=== PATIENT | female | born 1985 | race Hispanic/Latino ===

== ENCOUNTER 2019-10-28 20:52 | Emergency (ER) | payer OTHER ==
--- OUTSIDE RECORDS SUMMARY | 2019-10-28 20:54 | XMS REPORT | Clinical Summary ---
:1985 Author Organization [facility] Address [address] [place] [address] Care Team Providers Name Role Phone Pcp Primary Care Provider Unavailable Allergies No Known Allergies Medications Medication Sig Dispensed Refills Start Date End Date Status metFORMIN Take 500 mg by mouth 0 Active (GLUCOPHAGE) 500 MG daily. tablet dulaglutide Inject 1.5 mg 0 Acti ve (TRULICITY) 1.5 subcutaneously every mg/0.5 mL PnIj 7 days. empagliflozin Take 25 mg by mouth 0 Active (JARDIANCE) 25 mg daily. tablet traMADoL (ULTRAM) Take 1 tablet (50 mg 30 tablet 0 09/07/2019 50 mg tablet total) by mouth 0 every 6 (six) hours as needed for Pain for up to 10 days. Max Daily Amount: 200 mg methocarbamoL Take 1 tablet (750 40 tablet 0 09/07/2019 (ROBAXIN) 750 MG mg total) by mouth 4 0 tablet (four) times daily for 10 days. Active Problems Problem Noted Date Lumbar radiculopathy 09/07/2019 Encounters Date Type Specialty Care Team Description 09/07/2019 Surgery Devyn Melendez, LAMINECTOMY, LUMBAR W/DISCECTOMY 09/07/2019 Anesthesia Event Juana Garayluz 09/07/2019 - Hospital Encounter General Internal Devyn Melendez, 09/08/2019 Medicine MD 09/07/2019 Travel 09/06/2019 Hospital Encounter Pre-Admission Testing 09/06/2019 Orders Only Devyn Melendez MD 08/20/2019 Hospital Encounter Cardiology Devyn Melendez MD 08/20/2019 Hospital Encounter Devyn Melendez MD 08/20/2019 Hospital Encounter Pre-Admission Devyn Melendez Testing 08/19/2019 Orders Only Devyn Melendez MD after 10/27/2018 Social History Tobacco Use Types Packs/Day Years Used Date Never Smoker Smokeless Tobacco: Never Used Alcohol Use Drinks/Week oz/Week Comments No Alcohol Habits Answer Date Recorded How often do you have a drink containing alcohol? Never 09/06/2019 How many drinks containing alcohol do you have on a typical Not asked day when you are drinking? How often do you have six or more drinks on one occasion? No t asked Sex Assigned at Date Recorded Not on file Job Start Date Occupation Industry Not on file Not on file Not on file Travel History Travel Start Travel End No recent travel history available. Last Filed Vital Signs Vital Sign Reading Time Taken Blood Pressure 127/76 09/08/2019 8:00 AM CDT Pulse 78 09/08/2019 8:00 AM CDT Temperature 37 C (98.6 F) 09/08/2019 8:00 AM CDT Respiratory Rate 18 09/08/2019 8:00 AM CDT Oxygen Saturation 100% 09/08/2019 8:00 AM CDT Inhaled Oxygen Concentration - - Weight 77.1 kg (169 lb 15.6 oz) 09/07/2019 6:1 8 AM CDT Height 157.5 cm (5' 2") 09/07/2019 6:18 AM CDT Body Mass Index 31.09 09/07/2019 6:18 AM CDT Plan of Treatment Not on file Procedures Procedure Name Priority Date/Time Associated Diagnosis Comme nts RHYTHM STRIP - SCAN 09/09/2019 2:30 PM CDT TRANSFUSION SERVICE 09/08/2019 6:25 REPORT - SCAN PM CDT POCT-GLUCOSE METER Routine 09/07/2019 5:55 Resul ts for this PM CDT procedure are i n the results section. POCT-GLUCOSE METER Routine 09/07/2019 11:59 Resul ts for this AM CDT procedure are i n the results section. NEEDLE EMG, 2 Routine 09/07/2019 9:37 Results fo r this EXTREMITY AM CDT procedure are i n the results section. TISSUE EXAM AP Routine 09/07/2019 9:31 Results for this AM CDT procedure are i n the results section. FL FLUORO Routine 09/07/2019 8:39 Results for this NON-SPECIFIC UP TO AM CDT procedure are in 1 HOUR the results section. LAMINECTOMY,LUMBAR 09/07/2019 7:30 Lumbar radiculopat hy MIS AM CDT Case Notes PER May NEED TO PUT CASE O N WAITING LIST Special Needs (C-ARM, MICROSCOPE WITH MOUT H PIECE,RODRIGO TABLE AND,MUSA FRAME) PROCEDURE W/ C-ARM 09/07/2019 7:30 AM CDT Lumbar radi culopathy Case Notes PER May NEED TO PUT CASE O N WAITING LIST Special Needs (C-ARM, MICROSCOPE WITH MOUT H PIECE,RODRIGO TABLE AND,MUSA FRAME) LAMINECTOMY,LUMBAR W/DISCECTOMY 09/07/2019 7:30 AM CD T Lumbar radiculopathy Case Notes PER May NEED TO PUT CASE O N WAITING LIST Special Needs (C-ARM, MICROSCOPE WITH MOUT H PIECE,RODRIGO TABLE AND,MUSA FRAME) ABORH, MANUAL STAT 09/07/2019 6:23 AM CDT Res ults for this procedure are i n the results section . POCT-GLUCOSE METER Routine 09/07/2019 6:07 AM CDT Results for this procedure are i n the results section . POCT , URINE Routine 09/07/2019 6:07 AM CDT Results for this procedure are i n the results section . TRANSFUSION SERVICE REPORT 08/21/2019 6:04 PM CDT - SCAN XR CHEST 2 VIEWS Routine 08/20/2019 2:41 PM CDT Results for this procedure are i n the results section . ECG 12-LEAD Routine 08/20/2019 2:11 PM CDT Procedure Note - Interface, External Ris In - 08/20/2019 4:22 PM CDT Ventricular Rate 98 BPM Atrial Rate 98 BPM P-R Interval 126 ms QRS Duration 70 ms Q-T Interval 354 ms QTC Calculation(Bazett) 451 ms P [place] 61 degrees R [place] 43 degrees T [place] 56 degrees Normal sinus rhythm Normal ECG No previous ECGs available ECG 12-LEAD Routine 08/20/2019 2:11 PM CDT Resu lts for this procedure are i n the results section . CBC W/PLT COUNT & AUTO Routine 08/20/2019 2:07 PM CDT Results for this DIFFERENTIAL procedure are i n the results section . TYPE AND SCREEN, AUTOMATED Routine 08/20/2019 2:07 PM CDT Results for this procedure are i n the results section . CBC W/PLT COUNT & AUTO Routine 08/20/2019 2:07 PM CDT Results for this DIFFERENTIAL procedure are i n the results section . BASIC METABOLIC PANEL (7) Routine 08/20/2019 2:07 PM CDT Results for this procedure are i n the results section . PT/APTT Routine 08/20/2019 2:07 PM CDT Resu lts for this procedure are i n the results section . URINALYSIS W/ REFLEX URINE Routine 08/20/2019 2:07 PM CDT Results for this CULTURE procedure are i n the results section . after 10/27/2018 Results RHYTHM STRIP - SCAN (09/09/2019 2:30 PM CDT) Narrative Performed At This result has an attachment that is no t available. TRANSFUSION SERVICE REPORT - SCAN (09/08/2019 6:25 PM CDT)Only the most recent of2 resultswithin the time period is included. Narrative Performed At This result has an attachment that is no t available. POC-Glucose meter (09/07/2019 5:55 PM CDT)Only the most recent of3 results within the time period is included. POC-Glucose Meter 193 (H)Comment: : TESTED 70 - 110 mg/dL [facility] AT [address], [facility]: Globe Tester/Clinical Program Manager ID = [id number] for RENÉ SHEA Specimen Blood Performing Organization Address City/State/Zipcode Phone Number [facility] [address] [place] [address] CENTER NEEDLE EMG, 2 EXTREMITY (09/07/2019 9:37 AM CDT) Specimen Narrative Performed At INTRAOPERATIVE MONITORING REPORT GE RIS Patient Name:Rekha Irvin [facility] Surgery Date:09/07/2019 Carrier Pro: [id number] Monitoring began at 755 and ended at 937 Surgeon: Devyn Melendez MD Examining Neurologist: Lydia Bustamante MD Monitoring Technologist: Toña Forbes Procedure:Microdisectomy L5- S1 Stimulation Parameters: Posterior Tibial nerves individually sti mulated at the ankle Rate 2.9 2Hz, Intensity 60 mA, Duration 0.3ms Filters 30-500Hz, Notch Off Recording Parameters:NONE Free-running EMG of left and right Vastu s Lateralis/Vastus Medialis (L2-4), Tibialis Anterior (L4-5)- Perone us Longus (L5-S1) and Lateral Gastrocnemius (L5-S2) Abductor Hallicus ( S1-S2) Description:Intraoperative neurophys iological monitoring was performed using free-running EEGs and fr ee-running L2-S2 innervated muscle groups.A real-time connection with the examining neurologist was established and maintained throughou t the operative procedure by the monitoring technologist. Free-runnin g EMG of L2-S2 innervated muscle groups was quiet at baseline and monitored continuously throughout the operative procedure with no sustained neurotonic discharges seen. All EMGs were quiet at closing.Surgeon aware of all responses throughout the case and at closing. Conclusion: The absence of sustained neurotonic discharges on free-running EMG suggests that the nerve roots monitored remained undisturbed. Lydia Bustamante MD Procedure Note Interface, External Ris In - 09/09/2019 5:40 PM CDT INTRAOPERATIVE MONITORING REPORT Patient Name: Rekha Irvin [facility] Surgery Date: 09/07/2019 Carrier Pro: [id number] Monitoring began at 755 and ended at 937 Surgeon: Devyn Melendez MD Examining Neurologist: Lydia Bustamante MD Monitoring Technologist: Toña Forbes Procedure: Microdisectomy L5- S1 Stimulation Parameters: Posterior Tibial nerves individually sti mulated at the ankle Rate 2.92Hz, Intensity 60 mA, Duration 0.3ms Filters 30-500Hz, Notch Off Recording Parameters: NONE Free-running EMG of left and right Vastu s Lateralis/Vastus Medialis (L2-4), Tibialis Anterior (L4-5)- Perone us Longus (L5-S1) and Lateral Gastrocnemius (L5-S2) Abductor Hallicus ( S1-S2) Description: Intraoperative neurophysio logical monitoring was performed using free-running EEGs and fr ee-running L2-S2 innervated muscle groups. A real-time connection w ith the examining neurologist was established and maintained throughou t the operative procedure by the monitoring technologist. Free-runnin g EMG of L2-S2 innervated muscle groups was quiet at baseline and monitored continuously throughout the operative procedure with no sustained neurotonic discharges seen. All EMGs were quiet at closing. Surgeon aware of all responses throughout the case and at closing. Conclusion: The absence of sustained n eurotonic discharges on free-running EMG suggests that the nerve roots monitored remained undisturbed. Lydia Bustamante MD Performing Organization Address City/[facility]/Zipcode Phone Number GE RIS Tissue Exam (09/07/2019 9:31 AM CDT) Case Report Surgical Pathology Report Case: [id number] [facility] Authorizing Provider:Devyn Melendez MD Collected: 09/07/2019 09:31 AM [facility] Ordering Location: [facility] PERIOPERATIVE Received:09/07/2019 10:05 AM SERVICES Pathologist: Moises Dukes MD Specimen:Disc L5-S1 DIAGNOSIS VERTEBRAL COLUMN, INTERVERTEBRAL DISC, L5-S1, DI SCECTOMY: [facility] FRAGMENTS OF FIBROCARTILAGE WITH MILD DEGENERATI VE CHANGES [facility] Signing Pathologist Direct Phone Line: CPT Code(s) 165[address] [facility]TH [facility] CLINICAL HISTORY Preop diagnosis: Lumbar [facility] radiculopathy. [facility] SPECIMEN SOURCE Disc L5-S1 [facility] ALTH [facility] GROSS DESCRIPTION Received in formalin labeled C [facility] with the patient's name, [facility] accession number and "disc L5-S1" is a 1.5 x 1.4 x 0.3 cm aggregate of zhong-white fibrous tissue which is entirely submitted in A1. PA/pl MICROSCOPIC DESCRIPTION Performed [facility] Specimen Tissue Performing Organization Address City/[facility]/Zipcode Phone Number [address] [address] CENTER FL fluoro non-specific up to 1 hour (09/07/2019 8:39 AM CDT) Specimen Narrative Performed At FINAL REPORT RIS TECHNIQUE: 1 lateral fluoroscopic image of the lumbar spine for localization. Fluoroscopic time: 31 seconds. FINDINGS: The surgical pointer is at L5-S1. The findings were discussed with Dr. ANNI MELENDEZ MD in the OR who concurred with the findings. IMPRESSION: Intraoperative localization plain film a s described above. Signed: Kori Rondon MD Report Verified Date/Time:09/07/2019 08:39:50 Reading Location: [facility] Reading Room Procedure Note Interface, External Ris In - 09/07/2019 8:41 AM CDT FINAL REPORT TECHNIQUE: 1 lateral fluoroscopic image of the lumbar spine for localization. Fluoroscopic time: 31 seconds. FINDINGS: The surgical pointer is at L5-S1. The findings were discussed with Dr. ANNI MELENDEZ MD in the OR who concurred with the findings. IMPRESSION: Intraoperative localization plain film a s described above. Signed: Kori Rondon MD Report Verified Date/Time: 09/07/2019 0 8:39:50 Reading Location: [facility] Reading Room Performing Organization Address City/State/Zipcode Phone Number RIS ABORH, manual (09/07/2019 6:23 AM CDT) ABO Grouping O [facility] Rh Factor NEG [facility] Specimen Blood Performing Organization Address City/[facility]/Zipcode Phone Number [facility] [address] [place] [address] POCT , urine (09/07/2019 6:07 AM CDT) Test Urine, POC Negative Control line present?, POC Yes Background clear?, POC Yes UPT Cassette Lot #, POC [id number] UPT Cassette Expiration Date, POC Specimen XR chest 2 views (08/20/2019 2:41 PM CDT) Specimen Narrative Performed At FINAL REPORT GE RIS TECHNIQUE: Frontal and lateral views of the chest. INDICATION: 34-year-old woman with radic ulopathy. COMPARISON: None. FINDINGS: LINES/TUBES: None. LUNGS: Lungs are well inflated and clear . PLEURA: No pleural effusion or pneumotho rax. HEART AND MEDIASTINUM: Cardiomediastinal silhouette is within normal limits. BONES AND SOFT TISSUES: Bones are unrema rkable. Clips in the right upper quadrant. IMPRESSION: No acute cardiopulmonary abnormalities. Signed: Nettie Lomas MD Report Verified Date/Time:08/20/2019 14:53:50 Reading Location: [address] Radiolog y Reading Room Procedure Note Interface, External Ris In - 08/20/2019 2:55 PM CDT FINAL REPORT TECHNIQUE: Frontal and lateral views of the chest. INDICATION: 34-year-old woman with radic ulopathy. COMPARISON: None. FINDINGS: LINES/TUBES: None. LUNGS: Lungs are well inflated and clear . PLEURA: No pleural effusion or pneumotho rax. HEART AND MEDIASTINUM: Cardiomediastinal silhouette is within normal limits. BONES AND SOFT TISSUES: Bones are unrema rkable. Clips in the right upper quadrant. IMPRESSION: No acute cardiopulmonary abnormalities. Signed: Nettie Lomas MD Report Verified Date/Time: 08/20/2019 1 4:53:50 Reading Location: [address] Radiolog y Reading Room Performing Organization Address City/State/Zipcode Phone Number GE RIS ECG 12 lead (08/20/2019 2:11 PM CDT) Specimen Narrative Performed At Ventricular Rate 98 BPM GE MUSE Atrial Rate 98 BPM P-R Interval 126 ms QRS Duration 70 ms Q-T Interval 354 ms QTC Calculation(Bazett) 451 ms P [place] 61 degrees R [place] 43 degrees T [place] 56 degrees Normal sinus rhythm Normal ECG No previous ECGs available Confirmed by Casper Gtz ([id number]) on 08/21/2019 11:30 :22 AM Procedure Note Interface, External Ris In - 08/21/2019 11:30 AM CDT Ventricular Rate 98 BPM Atrial Rate 98 BPM P-R Interval 126 ms QRS Duration 70 ms Q-T Interval 354 ms QTC Calculation(Bazett) 451 ms P [place] 61 degrees R [place] 43 degrees T [place] 56 degrees Normal sinus rhythm Normal ECG No previous ECGs available Confirmed by Casper Gtz ([id number]) on 11:30:22 AM Performing Organization Address City/State/Zipcode Phone Number GE MUSE Urinalysis w/Microscopic + Reflex to Culture (08/20/2019 2:07 PM CDT) Color, UA Light Yellow [facility] Clarity, UA Clear [facility] Specific Pitman, UA 1.043 (H) 1.001 - 1.[address] [facility] pH, UA 5.5 5.0 - 8.[address] [facility] Protein, UA Negative Negative [facility] Glucose, UA >1000 mg/dL (A) Negative [facility] Ketones, UA Negative Negative [facility] Bilirubin, UA Negative Negative [facility] Blood, UA Negative Negative [facility] Nitrite, UA Positive (A) Negative [facility] Leukocytes, UA Negative Negative [facility] Urobilinogen, UA 0.2 0.2 - 1.0 mg/dL [facility] RBC, UA <1 /HPF [facility] WBC, UA 3 /HPF [facility] Bacteria, UA Rare [facility] Mucus Rare [facility] Squam Epithel, UA <1 /HPF [facility] Specimen Source [facility] Specimen Urine Narrative Performed At Globe Tester ID - [auto] [facility] Globe Tester ID - tech Performing Organization Address [facility] Phone Number [address] [address] CENTER Type and screen, automated (08/20/2019 2:07 PM CDT) ABO/RH AUTOMATED (BEAKER) O NEGATIVE [facility] Ab Scrn NEGATIVE [facility] Specimen Blood Performing Organization Address [facility] Phone Number [facility] [address] [place] [address] PT/aPTT (08/20/2019 2:07 PM CDT) Protime 12.5 11.9 - 14.2 seconds [facility] INR 1.0 <=5.9 [facility] PTT 27.9 22.5 - 36.0 seconds [facility] Specimen Blood Narrative Performed At Effective 07/08/2018: PT Reference Range [facility] Change New: 11.9-14.2Previous: 11.7-14.7 RECOMMENDED COUMADIN/WARFARIN INR THERAPY RANGES STANDARD DOSE: 2.0-3.0Includes: PROPHYLAXIS for venous thrombosis, systemic embolization; TREATMENT for venous thrombosis and/or pulmonary embolus. HIGH RISK: Target INR is 2.5-3.5 for patients wiht mechanical heart valves. Performing Organization Address [facility] Phone Number [facility] [address] [place] [address] CENTER CBC with platelet count + automated diff (08/20/2019 2:07 PM CDT) WBC 10.9 (H) 3.5 - 10.5 K/L [facility] RBC 4.27 3.93 - 5.22 M/L [facility] Hemoglobin 10.9 (L) 11.2 - 15.7 GM/DL [facility] Hematocrit 36.2 34.1 - 44.9 % [facility] CENTER MCV 84.8 79.4 - 94.[address] [facility] MCH 25.5 (L) 25.6 - 32.[address] [facility] MCHC 30.1 (L) 32.2 - 35.5 GM/DL [facility] RDW 14.3 11.7 - 14.4 % [facility] Platelets 376 150 - 450 K/CU MM [facility] MPV 9.9 9.4 - 12.[address] [facility] nRBC 0 0 - 0 /100 WBC [facility] % Neutros 70 % [facility] CENTER % Lymphs 22 % [facility] % Monos 7 % [facility] % Eos 0 % [facility] % Baso 1 % [facility] # Neutros 7.65 (H) 1.56 - 6.13 K/L [facility] # Lymphs 2.43 1.18 - 3.74 K/L [facility] # Monos 0.71 (H) 0.24 - 0.36 K/L [facility] # Eos 0.02 (L) 0.04 - 0.36 K/L [facility] # Baso 0.05 0.01 - 0.08 K/L [facility] Immature Granulocytes-Relative 0 0 - 1 % C HI [facility] Specimen Blood Performing Organization Address City/State/Zipcode Phone Number [facility] [address] [place] [address] CENTER Basic Metabolic Panel (08/20/2019 2:07 PM CDT) Sodium 135 (L) 136 - 145 meq/L [facility] Potassium 3.8 3.5 - 5.1 meq/L [facility] Chloride 105 98 - 107 meq/L [facility] CO2 22 22 - 29 meq/L [facility] BUN 21 7 - 21 mg/dL [facility] Creatinine 0.77 0.57 - 1.25 mg/dL [facility] Glucose 176 (H) 70 - 105 mg/dL [facility] Calcium 9.0 8.4 - 10.2 mg/dL [facility] EGFR 86Comment: ESTIMATED GFR IS mL/min/1.73 sq m [facility] NOT ACCURATE CREATININE MO DICAL CENTER CLEARANCE IN PREDICTING GLOMERULAR FILTRATION RATE. ESTIMATED GFR IS NOT APPLICABLE FOR DIALYSIS PATIENTS. Specimen Blood Narrative Performed At Globe Tester ID - BS [facility] Performing Organization Address City/State/Zipcode Phone Number [facility] [address] [place] [address] CENTER after 10/27/2018 Insurance Payer Benefit Plan / Group Subscriber ID Type Phone A ddress [employer] [facility] [employer] xxxxxxxxxxxx HMO/POS CARE CHOICE Advance Directives For more information, please contact:[facility] [place] [address] [phone] Code Status Date Activated Date Inactivated Comments Full Code 09/07/2019 5:52 AM 09/08/2019 12:38 PM This code status was determined by: Patient
--- OUTSIDE RECORDS SUMMARY | 2019-10-28 20:54 | XMS REPORT | Continuity of Care Document ---
:1985 Author Organization Down Care Team Providers Name Role Phone Down Unavailable Un available Problems Problem Status Onset Classification Date Comments Sourc e Date Reported Lumbar [facility]20[facility]2019 [facility]disorder) Peripheral nerve Active Problem 06/20/2019 [facility] disease Neuro (disorder) Medications No Data Provided for This Section Allergies, Adverse Reactions, Alerts No Known Medication Allergies Immunizations No Data Provided for This Section Results No Data Provided for This Section Pathology Reports No Data Provided for This Section Diagnostic Reports No Data Provided for This Section Consultation Notes No Data Provided for This Section Discharge Summaries No Data Provided for This Section History and Physicals No Data Provided for This Section Vital Signs No Data Provided for This Section Encounters Location Location Encounter Encounter Reason Attending ADM IA Stat Source Details Type Number For Provider Date Date Visit Outpatient [id number] Tim 05/13 Active [facility] /2019 [facility] Out[facility] [id number] [facility] 05/13 05/14 [facility] [place] /2019 Neuro [facility] Outside [id number] 06/16 06/18 [facility] /2019 Neuro [facility] Records Procedures No Data Provided for This Section Assessment and Plan No Data Provided for This Section Plan of Care No Data Provided for This Section Social History Social History Date Source No data available for this 06/19/2019 [facility] Neuro section Family History No Data Provided for This Section Advance Directives No Data Provided for This Section Functional Status No Data Provided for This Section
--- OUTSIDE RECORDS SUMMARY | 2019-10-28 20:55 | XMS REPORT | Continuity of Care Document ---
:1985 Author Organization [facility] t Address [address] [place] [address] [address]. [address] [place] [address] Care Team Providers Name Role Phone Pcp Primary Care Physician Unavailable Shakeel CANTU R Attending Clinician LATRICIA IVEY Attending Clinician Unavailable Latricia Ivey MD Attending Clinician Gatito Garay Attending Clinician Unavailable Latricia Ivey MD Attending Clinician Thomas Traore Attending Clinician LATRICIA IVEY Admitting Clinician Unavailable Payers Payer Name Policy Type Policy Number Effective Date Expiration Date S [facility] xxxxxxxxxxxx [facility] POS SELECT CHOICExxxxxxxxxx xxHMO/POS Problems Condition Condition Condition Status Onset Resolution Last Treating Co mments Source Name Details Category Date Date Treatment Clinician Date Lumbar Lumbar Disease Active [facility] radiculopa radiculopa 09-06 [facility] k[facility] - thy thy 00:00: Medical 00 Center Type 2 Type [address] [facility] diabetes diabetes [facility] - mellitus mellitus Memori a with other with other l diabetic diabetic Outpat i kidney kidney ent complicati complicati Cl inics on on Type 2 Type [address] [facility] diabetes diabetes [facility] - mellitus mellitus Memori a without without l complicati complicati Ou tpati on, on, ent without without Clinics long-term long-term current current use of use of insulin insulin Mixed Mixed Problem Active [facility] hyperlipid hyperlipid [facility] kes - emia emia Memoria l Outpati ent Clinics Well woman Well woman Problem Active C [facility] exam with exam with Luke s - routine routine Memoria gynecologi gynecologi l carolina exam carolina exam Outpat i ent Clinics Acute low Acute low Problem Active [facility] back pain back pain Luke s - without without Memoria sciatica, sciatica, l unspecifie unspecifie Ou tpati d back d back ent pain pain Clinics laterality laterality Adult BMI Adult BMI Problem Active [facility] 34.0-34.9 34.0-34.9 Luke s - kg/sq m kg/sq m Memoria l [facility] ent Clinics Tubal Tubal Problem Active [facility] ligation ligation [facility] - status status Memoria l [facility] ent Clinics Abnormal Abnormal Problem Active [facility] urine urine [facility] - Memoria l [facility] ent Clinics Right leg Right leg Problem Active [facility] paresthesi paresthesi [facility] kes - as as Memoria l [facility] ent Clinics Noncomplia Noncomplia Problem Active [facility] nce with nce with [facility] - dietary dietary Memoria restrictio restrictio l n n [facility]ics Constipati Constipati Problem Active [facility] on, on, [facility]ukes - unspecifie unspecifie Me moria d d l constipati constipati Ou tpati on type on type ent Clinics Herniated Herniated Problem Active [facility] lumbar lumbar [facility] - interverte interverte Me moria bral disc bral disc l [facility] ent Clinics Peripheral Problem Active 2019-06-20 M emoria nerve 23:16:54 l disease Atkinson (disorder) Peripheral nerve disease (disorder) Active Problem 06/20/2019 [facility] Allergies, Adverse Reactions, Alerts This patient has no known allergies or adverse reactions. Social History Social Habit Start Date Stop Date Quantity Comments Source History SDOH Alcohol [facility] [place] - Std Drinks [facility] Center History SDOH Alcohol [facility] [place] - Binge [facility] Center Sex Assigned At [facility] History SDOH Alcohol 2019-09-06 2019-09-[address] [facility] - Frequency 00:00:00 00:00:00 Medical Center Social History 2019-06-19 2019-06-19 [facility] alpesh 04:59:59 04:59:59 Smoking Status Start Date Stop Date Source Never smoker [facility] [place] - edical Center Medications Ordered Filled Start Stop Current Ordering Indication Dosage Frequency Signature Comments Components Source Medication Medication Date Date Medication? Clinician (SIG) Name Name traMADoL 2019- No 50mg Take [address] [facility] (ULTRAM) 50 09-06- tablet (50 L ukes - mg tablet 00:00: 23:59 mg total) Me dical 00 :00 by mouth Center every 6 (six) hours as needed for Pain for up to 10 days. Max Daily Amount: 200 mg methocarbam 2019- No 750mg Q.25D Take [address] oL 09-06 tablet [facility] - (ROBAXIN) 00:00: 23:59 (750 mg Medi carolina 750 MG 00 :00 total) by Center tablet mouth 4 (four) times daily for 10 days. metFORMIN Yes 500mg QD Take [address] [facility] (GLUCOPHAGE 7-14 mg by [facility] - ) 500 MG 11:39: mouth Medical tablet 20 daily. Center dulaglutide Yes 1.5mg Inject 1.[address] (TRULICITY) 7-14 mg [facility] - 1.5 mg/0.5 11:39: subcutaneo M edical mL PnIj 20 usly every Center 7 days. empaglifloz Yes 25mg QD Take [address] in 7-14 by mouth [facility]ukes - (JARDIANCE) 11:39: daily. Medi carolina 25 mg 20 Center tablet Lyrica Lyrica Yes Oscar [address] 8-21 [facility] - 00:00: Memoria 00 l [facility] Trulicity Trulicity Yes Oscar INJET [facility] [place] 1.5MG [facility] - UNDER THE Memoria SKIN ONCE l A WEEK [facility] Lisinopril Lisinopril Yes Oscar [address] [facility] - [facility] Synjardy XR Synjardy XR Yes Oscar [address] [facility] [place] with [facility] - breakfast [facility]oria l [facility] Lipitor Lipitor Yes Oscar [address] [facility] Phentermine Phentermine 2019- No Oscar [address] [facility] HCl HCl 07-13 [place] [facility] - 00:00 Memoria :00 l [facility] Vital Signs Vital Name Observation Time Observation Value Comments Source Systolic blood 2019-09-08 08:00:00 127 mm[Hg] [facility] Diastolic blood 2019-09-08 08:00:00 76 mm[Hg] [facility] Heart rate 2019-09-08 08:00:00 78 /min [facility] Body temperature 2019-09-08 08:00:00 37 Yohana [facility] Respiratory rate 2019-09-08 08:00:00 18 /min [facility] Oxygen saturation in 2019-09-08 08:00:00 100 /min [facility] Arterial blood by Medical Ce nter Pulse oximetry Body height 2019-09-07 06:18:00 157.5 cm [facility] Body weight Measured 2019-09-07 06:18:00 77.1 kg [facility] BMI 2019-09-07 06:18:00 31.09 kg/m2 [facility] Procedures Procedure Date / Time Performed Performing Clinician [facility]ly [facility] e RHYTHM STRIP - SCAN 2019-09-09 14:30:06 Provider, Default [facility] TRANSFUSION SERVICE 2019-09-08 18:25:10 Provider, Default [facility] REPORT [facility] POCT-GLUCOSE METER 2019-09-07 17:55:00 Mulugeta Ivey [facility] POCT-GLUCOSE METER 2019-09-07 11:59:00 Mulugeta Ivey [facility] NEEDLE EMG, 2 EXTREMITY 2019-09-07 09:37:00 Mulugeta Ivey [facility] TISSUE EXAM 2019-09-07 09:31:00 Mulugeta Ivey [facility] [place] FLUORO NON-SPECIFIC 2019-09-07 08:39:00 Mulugeta Ivey [facility] - UP TO 1 HOUR [facility] LAMINECTOMY,LUMBAR 2019-09-07 07:30:00 Mulugeta Ivey [facility] - W/DISCECTOMY [facility] PROCEDURE W/ C-ARM 2019-09-07 07:30:00 Mulugeta Ivey [facility] LAMINECTOMY,LUMBAR MIS 2019-09-07 07:30:00 Ivey, Mulugeta [facility] ABORH, MANUAL 2019-09-07 06:23:00 Caitlin Aaron [facility] POCT , URINE 2019-09-07 06:07:00 Tim Cardona [facility] POCT-GLUCOSE METER 2019-09-07 06:07:00 Mulugeta Ivey [facility] TRANSFUSION SERVICE 2019-08-21 18:04:20 Provider, Carol [facility] - REPORT - SCAN Scanning [facility] XR CHEST 2 VIEWS 2019-08-20 14:41:00 Mulugeta Ivey [facility] ECG 12-LEAD 2019-08-20 14:11:23 Unknown, Hl7 Doctor [facility] URINALYSIS W/ REFLEX 2019-08-20 14:07:00 Mulugeta Ivey [facility] URINE CULTURE [facility] Center PT/APTT 2019-08-20 14:07:00 [facility] BASIC METABOLIC PANEL 2019-08-20 14:07:00 Mulugeta Ivey [facility] (7) Medical Center TYPE AND SCREEN, 2019-08-20 14:07:00 Mulugeta Ivey [facility] AUTOMATED [facility] CBC W/PLT COUNT & AUTO 2019-08-20 14:07:00 Mulugeta Ivey [facility] DIFFERENTIAL [facility] Encounters Start End Encounter Admission Attending Care Care Encounter Source Date/Time Date/Time Type Type Clinicians Facility Department ID 2019-09-23 2019-09-23 Office NENA Beckford [id number] 12:13:33 12:55:16 Visit Rosalia R AMBULATOR [id number] Y [id number] 2019-08-23 2019-08-23 [facility] [id number] [address] 12:17:00 12:17:[address] [facility] Medicine Outpati ent Clinics 2019-08-23 2019-08-23 [facility] [id number] 11:30:00 11:30:[address] [facility] Medicine Outpati ent Clinics 2019-08-18 2019-08-18 Office Mulugeta Ivey [facility] [id number] 11:06:10 12:02:36 Visit Latricia AMBULATOR [id number] Y [id number] 2019-07-15 2019-07-15 [facility] [id number] 08:10:00 08:10:00 t [place] dVisit [employer]rowd[employer]at s - [employer] [facility] Medicine Outpati ent Clinics 2019-07-02 2019-07-02 [facility] [id number] 14:38:00 14:38:00 t iAmplify s - [employer] [facility] Medicine Outpati ent Clinics 2019-06-28 2019-06-28 [facility] [id number] 19:48:00 19:48:00 t iAmplify s - [employer] [facility] Medicine Outpati ent Clinics 2019-06-17 2019-06-18 Outpatient MHMISCHER MHMISCHER [id number] 08:53:33 23:59:59 00 2019-06-17 2019-06-18 Outpatient MHMISCHER MHMISCHER [id number] 08:53:33 23:59:59 00 2019-06-15 2019-06-15 [facility] [id number] 14:49:00 14:49:00 t [facility] s Road [facility] Medicine Outpati ent Clinics 2019-05-28 2019-05-28 [facility] [id number] 13:59:00 13:59:00 t iAmplify s - Drive [facility] Medicine Outpati ent Clinics 2019-05-26 2019-05-26 [facility] [id number] 13:20:00 13:20:00 t [place] [employer] - Drive [facility] Medicine Outpati ent Clinics 2019-05-24 2019-05-24 [facility] [id number] 11:45:00 11:45:00 t [place] [employer] [facility] 2019-05-14 2019-05-14 Outpatient PHOEBE TraoreSCHSHANTELLE SONIASCHER [id number] 13:30:00 23:59:59 Tim 00 Thomas 2019-05-14 2019-05-14 Outpatient PHOEBE TraoreSCHER PHOEBESCHER [id number] 13:30:00 23:59:59 Tim 00 Thomas 2019-03-25 2019-03-25 [facility] [id number] 14:30:00 14:30:00 [facility] 2019-01-19 2019-01-19 [facility] [id number] 14:15:00 14:15:00 [facility] Results Test Description Test Time Test Comments Results Result Comments Source Tissue Exam 2019-09-13 15:36:00 Test Item Value Reference Range Interpretation Comme nts Case Report (test code = 104) Surgical Pathology Report Case: [id number] Authorizing Provider: Mulugeta Ivey MD Collected: 09/07/2019 09:31 AM Ordering Location: [facility] PERI[facility] Received: 09/07/2019 10:05 AM SERVICES Pathologist: Moises Dukes MD Specimen: Disc L5-S1 DIAGNOSIS (test code = 3220) m9dtoLNzJTTww1ueNUDapQHfXwMvNnAuPrKxJr pc tYGpVYnpwtEsKTysg3LoQ9YwCyWpCBmhfdUuOTJg UwkxvvabFRGoKBA4ewOwWYQfSOicDOOrXPutDl9f gVJxkSjdDuBaPERta5kqhpYHimtznXv8i7xjPCEb YyM3gBRePEcnQ2bhtqIffHFdMNXmPOs4zS50UUEc nZ6nlHEhEJlnicTvDNqfheCkxmXzOtu7UDReT3yw UCTbHWZlZ3AuTY1iTTCqGlz2BEF6CPF1eZzmz7N8 dGKlgHUygOybGdZkEfNcSUXOo9IeIGn5rBkkJ7St FIIcZoP7eQVdGJFqKAyqLLNzJRMlbwR0hK61DKil jlX9mQEfn1Dqw76xa951mQ0hjJYaJMC5NVZpBQXk lUZbKOTlJLK8PPLjsLFvO1h8RaPlrOZtA3W0IrPw bTVnP4M6GuGrpNNtW0F0UhSlqWGaAOGjwMYwHz9m kCPpzFSxhf3xae43FNI0z7PabWazUSV2MHT7TlKw Yg0iaUXnAEFyNT1aObAwrTNoZAVqpl01yGhwAJqo wjNyiK1pFmZxIFTlyPRyWYMiWG3osWFeBZLemG9u svxbXTBfDkIzqjzdLZAduPuzfmRlSq7qbWlaWXS4 AZqwX1lhuZ0hLlQ2QMpcM9iteK5wPPw4EAsqtES9 EREkvL6fDT6edrxon2qdKvBmEJ5htrmhn6abUiAf BD4kgpl8s6voDeXkOY7edaxck7mtRoNbDLxjDQTa rfzvZZXwd4JpfejwPVZgy6JnI8WsuZbtA64vsJnb B03fCCTscRoguB3wmIusyE6pGuSzWvMeIDauwHtv bGFpblxmMFxmczIwXHBsYWluXGYxXGZzMjAgVkVS ICFPGbPRGSXPWYQBNpxuRD5FITABVIMJFLREIBlq BGiGOwgwJHHyXnBqJMKSZ1ISS3MLKAf7FQQxwbYN LqOHVVFZXLCeU7VxHntCNl0QJQGOOYwAK1ZpP6sP OUPGIAfTJMYSS9HHNAMPHKzRDMBZJRDZQ3QDPPVc al33PEA9ZdBec2H8IKY0AYIzBZBbb4sgKVHcrDRi HsIbZwXgOaPoKsnnzAEjXMZqOaXrj2qet758gLGo x0biMIFmZoS2pWGjSPQknJXiA872THJxEWhbv9qi n9MePUQgaFTan9F9SXQTjsybnZm6xOihK52pr2K5 GwdqO1quVLYgLFPsP0RxSM7cCLLrOge6SPR1BKA3 FRHbTTRkL0CqUQ3yGVAxlGAeGGs0s4sjoIrjKPZv SDK1q8ppBEjaniEzXB5oph9boKj8i8dlubAeEEGr BYVvlFTNBPHbF7PykTqtZb7cxZo0kBtdBcekJTQ4 Ndq1MN8yil38mxp1iQvgWBDlshrdHqH4YIadXADx jfslDRr2SLsxBFVthRB5UQMdwMHuA1YmJWOdMH1k ohe3ZLB1BYcbQJKcOrE2GYCccPPeBSYfzQauRZcx r749MXV2ApLbKI3vG8Qwd4S5rX7vvXIzDTQufZRb BbPwVOTsft9fwIAnYFtci7VyGHN8ybG3hURjpHRn AXLmExH6HUtrNT6lhs49VPXiVRO0eu4jqJRojQli jbJdlDRiIAgnS7NrZKTeg671JBXcO6MsMIAmo4P8 osLcXpLmBUOkvWA4bzN1RLFkJZ7sdmqfh2urICbj YGfrCYPgzwK1evD6XBFvaNOnR2OlgE6kIHUfNB8b acnei9jaXSB4HYhtHUXwQBQ2AgOzHUSgm4Xepsf2 CfLhr9YyhSPwXTzfY05su149ICYhzyQqB9rxmXUt rhskwHYmwqfaQBnqawB6LLXbZSmzyixrYQJuYDfs S1jpLfBvUGEhlCtjJHznm6HfEIYsCHNsBxGkwKBn HYMxUme0KYUzhYPgMKQmZxKqM1trtciiIsPLHEAc a3dvE5wexQCDwXWwO5PuCVjzzgMdVWhzHAaoWBWg CGN2NQ88RxsrLLYhvj17 CPT Code(s) (test code = 3357) i4kekDWvHDQmoWWbDfVnGDUsZAHje1ksDITp bGFu VnNjXyQnQaEbMisjkIJzBJWlTqIfy2wzr673lITn a7mmNAPtVvJ8tAJoIEDhgSRgD446i9bom3zeypXc uTQ3AWEkTFO5XRiurzHqzuO0IIkdqZDzMaH9MSbz tlLgUJqixpKrpqMgVru3CKEzY198PEH5xGtaf4ao TRE0EYZgUKMxBoMrIa2swGVlQ976CCBfIHMBGRVc uMm2QOUoykUuqxQeqDDFc683R377d6vlOWChxfIi zKkTmklho7aeB632VADguAKcegPwRhQjHWWhgYUg iBF4NMGvPK2lwptzPcIqWS1zlgfpIoWtUJ4dxvg8 HvPjST4gxawvKeTsXDtiREBjcdpxFRHvn9Ufpfuu NL2hH1Kzo7T2xE6nnGSdOECdzYVkLaZcGBZrez4z sYIsWFlau7JqMXM5gfS4bIGszMQsDCJmRY51Tomb c3LfVsytGGP0SMFvnvOky8Rnl4jnVcCfguSfC2ib R7WcZMRlNCDlVTDxAtGgraKhc6Tiy1EisDAouSr3 g7trUSIuKHEnbJvcu7igALL0QCTjV5S0eXRsl7hg JAliJRWsmIG3frjyUOacJPVimyW6covyPNdyALOx rGP6tmykWJeuIDDzZbL3hjxeHSdrWVShWLK3ZNew m295GJS4CTvzHifcWFliVNJkvoVcbeZswRquUUFn EARbCLodOSCvKIfpXYLqVRYxWaTvzCstlGxzcQ8h DaRkVoXpBRucQA6dMTQvF2gqeOGcCIOeFXPwS6xh UxPwfC3doIpbKXduemVuSWs3HvC3HSFmkl7= CLINICAL HISTORY (test code = 3356) d6iuxFIfGLHynBQiGfYcZRRgQTTba6t cZGVmbGFu XzGdNhKbDmRxQxhepFFwJXTcCwXof5kzh851gYHg l1svFUEaIdB9yRWhBVKneRHmB904a2jok4uckpDn sHZ2BYMuTWO2GZyjvkEwesE1EDwrzGStBqU1AZpw tqEkEJxhnnKzhxGrSyt3KMRmU597SUD1pCklx4eo WAC9RJIoCXCgOsNyIr4ocPZjQ866CJDmJDVILEIm zYl2EUSbwfVoxhUgrKYAt227R652g6ybWDMhzoGd yEjIukbog7giC309WWOepMWpguWoWjAzCBMofLMo rOC7MDKbNH9kzltbFtOaRY9dhsvrGmQsGQ3mjla2 JdLtDY5huforZrVoHZhtBERklvglZORuq0Rcqxld VU2xJ0Jbi1Z2sR2xyASlFZYtqAKwRpExROIdam0p mPRfYHzys2ObVNL0ymN5zAJduTKhSBUlEE68Zklp k5QjJhxrGNE5FGDnawIoe0Dyq5puExQwhdDiY2gl J9LrWXNfLNRyUMFsEvFibySja6Ipu5OcnRFlnLn9 l7pnFIVuCXOxkNikm0rsISV6YPJzF5W3cOPxc6ef BRxxWBQefOH5idcoFBimZWJxyoC6ymabARwhAXRn lNP6gjfmFDdmSXUgPnZ7rfiuFQfbAOGxJTM6OLlm f839AHH1TNwvLudaWSozXHEbevXstaArpMcmBPUu QGEcGLhnTCKkLLknZBEiLPEjToNrdBtbsLdivH7d SyCiNcWlTGvrSI5jCREbM6lroDRfZWAoJFPuE6rj PvAavH4hiPiqRDsdnoQePBMdNH8tZEHaQTaav2Et afzeCHp4yRZacdAxDAEvO8Xhh3XufUf2KzWfhJDo fQ== SPECIMEN SOURCE (test code = 3377) o2jeaFMdZAYkkBPhGjFcJPXuOHGap7uu ZGVmbGFu HeMoReNdXiQlMzyzeUMoZCAsFzHnc7ibh196bLJs e0jqYJDrDsF0fLIpSLAvlKZlD865u9bcd3xvlpCo mZU9ZYBmABM8WWpbbsNwylO4YRndiIBeDhK2POqj dmTdOXilrvMmmkZsFsu9IKCfJ959UHG0fNuft4xz HEF6JIEjIVGlZtRrTm7leOXpC946CTZaMYEJTQZh aEu5VQAccaQsfhApcVAGy337Q781q1qdYIUgreBp xDgTtpbaa0kzT754DXKxtGWdadAnXeYdHADiiFVs sNT2YRQyWI8praiuLcQpSP2pjgtiBlBmOT2zyze2 YiViEE8forgxVzJrTEcgZGZopvosCMVed9Mwfmhn SV9hM3Uva9Y5aN9adSVsIYKbaDSiYtKvZGNjrp3f lKGkBFqxf0PbZOF3leY7rYTtsDWvPBMvBQ27Hpae s6AoJqquSQF8JLZifwEzr0Jiy3khByYxpvUkA1ib V9CkBPNkRSLuEPUoIpBhdeIju0Eew4ZuoFEwhJf9 y5siZUBoIYXomFofb6ofEWR2JPRiQ9N2zXEdi5qw VJwjWMUwnWT6lbdzXYgpFEAmrvL4rqwpLEndFAJa xEG2yccbJTsyIJEcFiJ5upgoAGjuIXTbTSR9CTam m056DLF4SWxzOjshCGyeCBCggrBxtdFlhRlsQHOn RFUpYLrtCWFuRHynURNlZSRpThAhnGyibDgnqL9u BaXhApOoBMnzVX7bTYQjA8cdyYMxQNLpSUScA7jl BxHgyZ3efPvaUUicyjViACSob8MtTPGeEfBvtWKe fQ== GROSS DESCRIPTION (test code = 3366) j6ibgDToICQjdXCsAfWlEHTrHAIze7 lcZGVmbGFu [file] UEEvcGwgXHBhcn0= MICROSCOPIC DESCRIPTION (test code = q6mxeHJaPBHreVCyGoWxFINeUYHxv2 [place] [address]) DjFuTbYePmJmEndtkUJhNIRtShAlz3pao852yOQa p2mgLCBdLeW0jTVlGDSpqWKxL695w5dxx5qiokAl sGJ7SORoIXE1KCuozlBlcrI4DQzdvVAhVlP0CEqy lzPaABkubrDsinKaCua6KYXgJ944RHG8mVxkm6vw XMN8HKRfBBTmVtUjZm9rjBNqM043VQUyRDKSUWVy kGd1JUHauhOsxmVijRDDv772D690v8ubUOEjweAx qCqOcsgmb6ezO310QHGozSSnbeKvJwYjBZWpoWWp xOV4HOOzUO9uuekqAiBsGX8gwxkuDaLgQB8jbof6 KuNkCY0vifpoMhPcTIjfJVSpsjxzWLRoi4Okijyn RT5zC1Aqh7H8eX9wkMHgCRPfnXTyNmWpLCNgle9r eHIbYOgts0PnGSV6kqT0iWCzxKRxHTCbMZ40Oivo w5BvChiiIMJ9DOFnnkPbl9Kiz7ijRbQmngVdZ1rl Q7NrBMRjMLPpISWnQyCmuvBkv4Xdo6BdsWXurLc6 y0fnGZFyLPWepJrmf2hzEDM6QUThV2Z8yLGsi1ab VEgrPOOlpRF4uwahSQexRCKwnsD8ixqcCDghNVNp rRW1movnUSfnCGRnZlE4cmkaKEwuFFQoJCZ5KHbz r218VIZ9EGyaWrhsEQfdUVIoecAzyeExpJnsVMMz OXIcOFozJFYeDXrgUJWwNZBcRwBmaAkqvWwncR0p OnHsMvOcVKhjFS0tFULxO1pfnYKiJOWcQMOsH3hn HyIdgZ1ktNfqZCyxkgLmGAPbogItad3lBVsfQQH6 [facility] [id number] 15:36:00Surgical Pathology Report Case: [id number] Authorizing Provider: Mulugeta Ivey MD Collected: 09/07/2019 09:31 AM Ordering Location: [facility] Received: 09/07/2019 10:05 AM SERVICES Pathologist: Moises Dukes MD Specimen: Disc L5-S1 VERTEBRAL COLUMN,INTERVERTEBRAL DISC, L5-S1, DISCECTOMY:FRAGMENTS OF FIBROCARTILAGE WITH MILD DEGENERATIVE CHANGES Signing Pathologist Direct Phone Line: [phone] signed by Moises Dukes MD on09/13/2019 at 3:36 [id number] diagnosis: Lumbar radiculopathy. Disc L5-S7Wclthpws in formalin labeled with the patient's name, accession number and "disc L5-S1" is a 1.5 x 1.4 x 0.3 cm aggregate of zhong-white fibrous tissue which is entirely submitted in A1. PA/pl PerformedNEEDLE EMG, 2 [id number] 17:39:00IOM INTRAOPERATIVE MONITORING REPORT Patient Name: Rekha Pittman [facility] Surgery Date: 09/07/2019 [place] Pro: [id number] Monitoring began at 755 and ended at 937 Surgeon: Mulugeta Ivey MD Examining Neurologist: Lydia Bustamante MD Monitoring Technologist: Toña Forbes Procedure: Microdisectomy L5- A8Eaipcsajcdo Parameters: Posterior Tibial nerves individually stimulated at the ankle Rate 2.92Hz, Intensity 60 mA, Duration 0.3ms Filters 30-500Hz, Notch Off Recording Parameters: NONEFree-running EMG of left and right Vastus Lateralis/Vastus M edialis (L2-4), Tibialis Anterior (L4-5)- Peroneus Longus (L5-S1) and Lateral Gastrocnemius (L5-S2) Abductor Hallicus ( S1-S2) Description: Intraoperative neurophysiological monitoring was performed using free-running EEGs and free- running L2-S2 innervated muscle groups. A real-time connection with the examining neurologist was established and maintained throughout the operative procedure by the monitoring technologist. Free-running EMG of L2-S2 innervated muscle groups was quiet at baseline and monitored continuously throughout the operative procedure with no sustained neurotonic discharges seen. All EMGs were quiet at closing. Surgeon aware of all responses throughout the case and at closing.Conclusion: The absence of sustained neurotonic discharges on free- running EMG suggests that the nerve roots monitored remained undisturbed. Lydia Bustamante MD NEEDLE EMG, 2 EXTREMITY 2019-09-09 17:39:00Interface, External Ris In - 09/09/2019 5:40 PM CDTINTRAOPERATIVE MONITORING REPORT Patient Name:Rekha Pittman [facility] Surgery Date: 09/07/2019 [place] Pro: [id number] Monitoring began at 755 and ended at 937 Surgeon: Mulugeta Ivey MD Examining Neurologist: Lydia Bustamante MD Monitoring Technologist: Toña Forbes Procedure: Microdisectomy L5- [id number] Parameters: Posterior Tibial ne rves individually stimulated at the ankle Rate 2.92Hz, Intensity 60 mA, Duration 0.3ms Filters 30-500Hz, Notch Off Recording Parameters: NONEFree-running EMG of left and right Vastus Lateralis/Vastus Medialis (L2-4), Tibialis Anterior (L4-5)- Peroneus Longus (L5-S1) and Lateral Gastrocnemius (L5-S2) Abductor Hallicus ( S1-S2) Description: Intraoperative neurophysiological monitoring was performed using free-running EEGs and free-running L2-S2 innervated muscle groups. A real-time connection with the examining neurologist was established and main tained throughout the operative procedure by the monitoring technologist. Free- running EMG of L2-S2 innervated muscle groups was quiet at baseline and monitored continuously throughout the operative procedure with no sustained neurotonic discharges seen. All EMGs were quiet at closing. Surgeon aware of all responses throughout the case and at closing.Conclusion: The absence of sustained neurotonicdischarges on free-running EMG suggests that the nerve roots monitored remained undisturbed. Lydia [facility]ustamante [facility] [id number] 18:07:00 Test Item Value Reference Range Interpretation Comments POC-Glucose Meter (test 193 mg/dL 70-110 H : TE STED AT [facility] code = 1538) 20 [facility], 770 30: Hydroblaster/Techni jasvir ID = [id number] for SHEA MERRITT Lab Interpretation (test Abnormal code = 72216-8) [facility] [id number] 18:07:00 Test Item Value Reference Range Interpretation Comments POC-GLUCOSE METER 193 mg/dL 70-110 H : [facility] (test code = [facility], 1538) [address]46: Hydroblaster/Techni jasvir ID = [id number] for SHEA SMITH POCT-GLUCOSE [id number] 12:11:00 Test Item Value Reference Range Interpretation Comments POC-GLUCOSE METER 177 mg/dL 70-110 H : [facility] (test code = [facility], 1538) 11444: Hydroblaster/Techni jasvir ID = [id number] for Ninoska De Leon [place], FLUORO, NON-SPECIFIC, UP TO 1 [id number] 08:39:00Reason for exam:- >RIGHT L5-S1 MINIMALLY INVASIVE SURGERY MICRODISCECTOMYFINAL REPORT TECHNIQUE: 1 lateral fluoroscopic image of the lumbar spine for l ocalization.Fluoroscopic time: 31 seconds. FINDINGS: The surgical pointer is at L5-S1. The findings were discussed with Dr. MULUGETA IVEY MD in the OR who concurred with the findings. IMPRESSION: Intraoperative localization plain film as described above. Signed: Kori Jackman MDRbladimir Verified Date/Time: 09/07/2019 08:39:50 Reading Location: [facility] Radiology Reading Room Electronicallysigned by: KORI JACKMAN M.D. on 09/07/2019 08:39 AMFL fluoro non-specific up to 1 [id number] 08:39:00Interface, External Ris In - 09/07/2019 8:41 AM CDTFINAL REPORT TECHNIQUE: 1lateral fluoroscopic image of the lumbar spine for localization.Fluoroscopic time: 31 seconds. FINDINGS: The surgical pointer is at L5-S1. The findings were discussed with Dr. MULUGETA IVEY MD in the OR who concurred with the findings. IMPRESSION: Intraoperative localization plain film as described above. Signed: Kori Jackman Verified Date/Time: 09/07/2019 08:39:50 Reading Location: [facility] Radiology Reading Room [facility], [id number] 07:17:00 Test Item Value Reference Range Interpretation Comments ABO Grouping (test code = 2588) O Rh Factor (test code = 2589) NEG [facility] [id number] 06:19:00 Test Item Value Reference Range Interpretation Comments POC-GLUCOSE METER 130 mg/dL 70-110 H : TESTED A T [facility] 6720 (BEAKER) (test code = JOE Lindo [facility], 1538) 45567: Hydroblaster/Techni jasvir ID = [id number] for PL AIR, AARON POCT , [id number] 06:07:00 Test Item Value Reference Range Interpretation Comments Test Urine, POC (test Negative code = 0025263) Control line present?, POC (test Yes code = 5163458) Background clear?, POC (test code Yes = 7323225) UPT Cassette Lot #, POC (test code 3680354 = [id number]) UPT Cassette Expiration Date, POC (test code = 0917955) [facility] [id number] 11:30:30Interface, External Ris In - 08/21/2019 11:30 AM CDTVentricular Rate 98 BPMAtrial Rate 98 BPMP-R Interval 126 msQRS Duration 70 msQ-T Interval 354 msQTC Calculation(Bazett) 451 msP [place] 61 degreesR [place] 43 degreesT [place] 56 degreesNormal sinus rhythmNormal ECGNo previous ECGs availableConfirmed by Casper Gtz ([id number]) on 08/21/2019 11:30:22 [facility]Type and screen, [id number] 17:44:00 Test Item Value Reference Range Interpretation Comments ABO/RH AUTOMATED (BEAKER) (test O NEGATIVE code = 2260) Ab Scrn (test code = 890-4) NEGATIVE [facility] Metabolic [id number] 16:49:00 Test Item Value Reference Range Interpretation Comments Sodium (test code = 135 meq/L 136-145 L 2951-2) Potassium (test code = 3.8 meq/L 3.5-5.1 2823-3) Chloride (test code = 105 meq/L 98-107 2075-0) CO2 (test code = 22 meq/L 22-29 2028-9) BUN (test code = 21 mg/dL 7-21 3094-0) Creatinine (test code 0.77 mg/dL 0.57-1.25 = 2160-0) Glucose (test code = 176 mg/dL 70-105 H 2345-7) Calcium (test code = 9.0 mg/dL 8.4-10.2 28669-8) EGFR (test code = 86 mL/min/1.73 [place] [address]-9) NOT ACCURATE CREATININE CLEARANCE IN PREDICTING GLOMERULAR FILTRATION RATE . ESTIMATED GFR I S NOT APPLICABLE FOR DIALYSIS PATIENTS. AURE (test code = AURE) Hydroblaster ID - BS Lab Interpretation Abnormal (test code = 33605-4) [facility] METABOLIC [id number] 16:49:00 Test Item Value Reference Range Interpretation Comments SODIUM (BEAKER) 135 meq/L 136-145 L (test code = 381) POTASSIUM (BEAKER) 3.8 meq/L 3.5-5.1 (test code = 379) CHLORIDE (BEAKER) 105 meq/L 98-107 (test code = 382) CO2 (BEAKER) (test 22 meq/L 22-29 code = 355) BLOOD UREA NITROGEN 21 mg/dL 7-21 (BEAKER) (test code = 354) CREATININE (BEAKER) 0.77 mg/dL 0.57-1.25 (test code = 358) GLUCOSE RANDOM 176 mg/dL 70-105 H (BEAKER) (test code = 652) CALCIUM (BEAKER) 9.0 mg/dL 8.4-10.2 (test code = 697) EGFR (BEAKER) (test 86 mL/min/1.73 ESTIMA TIARA GFR IS code = 1092) sq m NOT ACCURATE CREATININE CLEARANCE IN PREDICTING GLOMERULAR FILTRATION RATE . ESTIMATED GFR I S NOT APPLICABLE FOR DIALYSIS PATIEN TS. Hydroblaster ID - [id number] 16:42:00 Test Item Value Reference Range Interpretation Comments Protime (test code = 12.5 11.9- 14.2 5902-2) seconds INR (test code = 1.0 <=5.9 6301-6) PTT (test code = 27.9 22.5- 36.0 28375-9) seconds AURE (test code = AURE) Effective 07/08/2018: PT Reference Range ChangeNew: 11.9-14.2 Previous: 11.7-14.7 RECOMMENDED COUMADIN/WARFARIN INR THERAPY RANGESSTANDARD DOSE: 2.0-3.0 Includes: PROPHYLAXIS for venous thrombosis, systemic embolization; TREATMENT for venous thrombosis and/or pulmonary embolus.HIGH RISK: Target INR is 2.5-3.5 for patients wiht mechanical heart valves. Lab Interpretation Normal (test code = 59090-5) [id number] 16:42:00 Test Item Value Reference Range Interpretation Comments PROTIME (BEAKER) (test code = 12.5 seconds 11.9-14.2 759) INR (BEAKER) (test code = 370) 1.0 <=5.9 PARTIAL THROMBOPLASTIN TIME 27.9 seconds 22.5-36.0 (BEAKER) (test code = 760) Effective 07/08/2018: PT Reference Range ChangeNew: 11.9-14.2 Previous: 11.7- 14.7RECOMMENDED COUMADIN/WARFARIN INR THERAPY RANGESSTANDARD DOSE: 2.0-3.0 Includes: PROPHYLAXIS for venous thrombosis, systemic embolization; TREATMENT for venous thrombosis and/or pulmonary embolus.HIGH RISK: Target INR is2.5-3.5 for patients wiht mechanical heart valves.Urinalysis w/Microscopic + Reflex to [id number] 16:39:00 Test Item Value Reference Range Interpretation Comments Color, UA (test code = Light Yellow 5778-6) Clarity, UA (test code = Clear 5767-9) Specific [place], UA (test 1.043 1.001-1.035 H code = 5811-5) pH, UA (test code = 5.5 5.0-8.0 5803-2) Protein, UA (test code = Negative Negative 01069-3) Glucose, UA (test code = >1000 mg/dL Negative A 365) Ketones, UA (test code = Negative Negative 2514-8) Bilirubin, UA (test code = Negative Negative 41751-8) Blood, UA (test code = Negative Negative 75672-9) Nitrite, UA (test code = Positive Negative A 5802-4) Leukocytes, UA (test code Negative Negative = 5799-2) Urobilinogen, UA (test 0.2 mg/dL 0.2-1 code = 51425-1) RBC, UA (test code = <1 /HPF 09812-2) WBC, UA (test code = 3 /HPF 5821-4) Bacteria, UA (test code = Rare 06821-0) Mucus (test code = 8247-9) Rare Squam Epithel, UA (test <1 /HPF code = 47951-3) Specimen Source (test code = 2795) AURE (test code = AURE) Hydroblaster ID - [auto]Hydroblaster ID - tech Lab Interpretation (test Abnormal code = 47761-8) [facility] UR[facility] [id number] 16:39:00 Test Item Value Reference Range Interpretation Comments COLOR (BEAKER) (test code = 470) Light Yellow CLARITY (BEAKER) (test code = Clear 469) SPECIFIC GRAVITY UA (BEAKER) 1.043 1.001-1.035 H (test code = 468) PH UA (BEAKER) (test code = 467) 5.5 5.0-8.0 PROTEIN UA (BEAKER) (test code = Negative Negative 464) GLUCOSE UA (BEAKER) (test code = >1000 mg/dL Negative A 365) KETONES UA (BEAKER) (test code = Negative Negative 371) BILIRUBIN UA (BEAKER) (test code Negative Negative = 462) BLOOD UA (BEAKER) (test code = Negative Negative 461) NITRITE UA (BEAKER) (test code = Positive Negative A 465) LEUKOCYTE ESTERASE UA (BEAKER) Negative Negative (test code = 466) UROBILINOGEN UA (BEAKER) (test 0.2 mg/dL 0.2-1.0 code = 463) RBC UA (BEAKER) (test code = < /HPF 519) WBC UA (BEAKER) (test code = 3 /HPF 520) BACTERIA (BEAKER) (test code = Rare 517) MUCUS (BEAKER) (test code = Rare 1574) SQUAMOUS EPITHELIAL (BEAKER) < /HPF (test code = 516) SOURCE(BEAKER) (test code = 2795) Hydroblaster ID - [auto]Hydroblaster ID - techCBC with platelet count + automated diff 2019-08-20 16:37:00 Test Item Value Reference Range Interpretation Comments WBC (test code = 6690-2) 10.9 3.5- 10.5 K/L H RBC (test code = 789-8) 4.27 3.93- 5.22 M/L MCHC (test code = 786-4) 30.1 32.2- 35.5 GM/DL L Hematocrit (test code = 4544-3) 36.2 % 34.1-44.9 MCV (test code = 787-2) 84.8 fL 79.4-94.8 MCH (test code = 785-6) 25.5 pg 25.6-32.2 L RDW (test code = 788-0) 14.3 % 11.7-14.4 Platelets (test code = 777-3) 376 150- 450 K/CU MM MPV (test code = 09450-9) 9.9 fL 9.4-12.3 nRBC (test code = 413) 0 0- 0 /100 WBC % Neutros (test code = 429) 70 % % Lymphs (test code = 430) 22 % % Monos (test code = 431) 7 % % Eos (test code = 432) 0 % % Baso (test code = 437) 1 % # Neutros (test code = 670) 7.65 1.56- 6.13 K/L H # Lymphs (test code = 414) 2.43 1.18- 3.74 K/L # Monos (test code = 415) 0.71 0.24- 0.36 K/L H # Eos (test code = 416) 0.02 0.04- 0.36 K/L L # Baso (test code = 417) 0.05 0.01- 0.08 K/L Immature Granulocytes-Relative 0 % 0-1 (test code = 2801) Lab Interpretation (test code = Abnormal 85031-6) [facility] W/PLT COUNT & AUTO [id number] 16:37:00 Test Item Value Reference Range Interpretation Comments WHITE BLOOD CELL COUNT (BEAKER) 10.9 K/ L 3.5-10.5 H (test code = 775) RED BLOOD CELL COUNT (BEAKER) 4.27 M/ L 3.93-5.22 (test code = 761) HEMOGLOBIN (BEAKER) (test code = 10.9 GM/DL 11.2-15.7 L 410) HEMATOCRIT (BEAKER) (test code = 36.2 % 34.1-44.9 411) MEAN CORPUSCULAR VOLUME (BEAKER) 84.8 fL 79.4-94.8 (test code = 753) MEAN CORPUSCULAR HEMOGLOBIN 25.5 pg 25.6-32.2 L (BEAKER) (test code = 751) MEAN CORPUSCULAR HEMOGLOBIN CONC 30.1 GM/DL 32.2-35.5 L (BEAKER) (test code = 752) RED CELL DISTRIBUTION WIDTH 14.3 % 11.7-14.4 (BEAKER) (test code = 412) PLATELET COUNT (BEAKER) (test 376 K/CU MM 150-450 code = 756) MEAN PLATELET VOLUME (BEAKER) 9.9 fL 9.4-12.3 (test code = 754) NUCLEATED RED BLOOD CELLS 0 /100 WBC 0-0 (BEAKER) (test code = 413) NEUTROPHILS RELATIVE PERCENT 70 % (BEAKER) (test code = 429) LYMPHOCYTES RELATIVE PERCENT 22 % (BEAKER) (test code = 430) MONOCYTES RELATIVE PERCENT 7 % (BEAKER) (test code = 431) EOSINOPHILS RELATIVE PERCENT 0 % (BEAKER) (test code = 432) BASOPHILS RELATIVE PERCENT 1 % (BEAKER) (test code = 437) NEUTROPHILS ABSOLUTE COUNT 7.65 K/ L 1.56-6.13 H (BEAKER) (test code = 670) LYMPHOCYTES ABSOLUTE COUNT 2.43 K/ L 1.18-3.74 (BEAKER) (test code = 414) MONOCYTES ABSOLUTE COUNT (BEAKER) 0.71 K/ L 0.24-0.36 H (test code = 415) EOSINOPHILS ABSOLUTE COUNT 0.02 K/ L 0.04-0.36 L (BEAKER) (test code = 416) BASOPHILS ABSOLUTE COUNT (BEAKER) 0.05 K/ L 0.01-0.08 (test code = 417) IMMATURE GRANULOCYTES-RELATIVE 0 % 0-1 PERCENT (BEAKER) (test code = 2801) RAD, CHEST, 2 [id number] 14:53:00Reason for exam:->radiculopathyFINAL REPORT TECHNIQUE: Frontal and lateral views of the chest. INDICATION: 34-year-old woman with radiculopathy. COMPARISON: None. FINDINGS: LINES/TUBES: None. LUNGS: Lungs arewell inflated and clear. PLEURA: No pleural effusion or pneumothorax. HEART AND MEDIASTINUM: Cardiomediastinal silhouette is within normal limits. BONES AND SOFT TISSUES: Bones are unremarkable. Clips in the right upper quadrant. IMPRESSION:No acute cardiopulmonary abnormalities. Signed: Nettie Cunningham MDReport Verified Date/Time: 08/20/2019 14:53:50 Reading Location: [address] Radiology Reading Room XR chest 2 [id number] 14:53:00Interface, External Ris In - 08/20/2019 2:55 PM CDTFINAL REPORT TECHNIQUE: Frontal and lateral views of the chest. INDICATION: 34-year-old woman with radiculopathy. COMPARISON: None. FINDINGS: LINES/TUBES: None. LUNGS: Lungs are well inflated and clear. PLEURA: No pleural effusion or pneumothorax. HEART AND MEDIASTINUM: Cardiomediastinal silhouette is within normal limits. BONES AND SOFT TISSUES: Bones are unremarkable. Clips in the right upper quadrant. IMPRESSION:No acutecardiopulmonary abnormalities. Signed: Nettie Cunningham MDReport Verified Date/Time: 08/20/2019 14:53:50 Reading Location: [address] Radiology Reading Room [facility]
--- OUTSIDE RECORDS SUMMARY | 2019-10-28 20:55 | XMS REPORT ---
:1985 Author Organization eClinicalWorks Care Team Providers Name Role Phone Oscar Sutton Provider Role Unavailable Allergies, Adverse Reactions, Alerts Substance Reaction Event Type N.K.D.A. Info Not Available Non Drug Allergy Problems Problem Type Condition Code Onset Dates Condition Statu s Problem Acute low back pain without M54.5 Active sciatica, unspecified back pain laterality Problem Tubal ligation status Z98.51 Active Problem Abnormal urine R82.90 Active Problem Constipation, unspecified K59.00 Ac tive constipation type Assessment Right lumbosacral radiculopathy M54.17 Active Problem Noncompliance with dietary Z91.11 A ctive restriction Assessment Right leg paresthesias R20.2 Activ e Assessment Right leg pain M79.604 Active Problem Herniated lumbar intervertebral M51.26 Active disc Problem Mixed hyperlipidemia E78.2 Active Problem Well woman exam with routine Z01.419 Active gynecological exam Problem Right leg paresthesias R20.2 Activ e Problem Type 2 diabetes mellitus with other E11.29 Active diabetic kidney complication Assessment Proteinuria, unspecified R80.9 Act jennifer Assessment Weakness of right lower extremity R29.898 Active Assessment Encounter for dietary counseling Z71.3 Active and surveillance Assessment Noncompliance w/medication Z91.14 A ctive treatment due to intermit use of medication Assessment Type 2 diabetes mellitus with other E11.29 Active diabetic kidney complication Assessment Adult BMI 34.0-34.9 kg/sq m Z68.34 Active Assessment Noncompliance with dietary Z91.11 A ctive restriction Assessment Mixed hyperlipidemia E78.2 Active Problem Type 2 diabetes mellitus without E11.9 Active complication, without long-term current use of insulin Assessment Constipation, unspecified K59.00 Ac tive constipation type Assessment Herniated lumbar intervertebral M51.26 Active disc Problem Adult BMI 34.0-34.9 kg/sq m Z68.34 Active Medications Medication Code Code Instructions Start End Status Dosage System Date Date Lisinopril [facility] 00859732636 2.5 MG Orally Active 1 t ablet Once a day Synjardy XR [facility] 57613372002 25-1000 MG Active 1 tab let Orally Once a with day breakfast Lyrica [facility] 97342637373 50 MG orally Sep 30, Active 1 capsu le twice a day 2018 Lipitor [facility] 13247293710 40 MG Orally Active 1 table t Once a day Phentermine [facility] 63167683217 37.5 MG Orally August Inactive 1 capsule HCl Once a day 2019 Trulicity [facility] 73802223253 1.5 MG/0.5ML Active INJET 1.5MG Subcutaneous UNDER THE SKIN ONCE A WEEK Results No Known Results Summary Purpose eClinicalWorks Submission
--- OUTSIDE RECORDS SUMMARY | 2019-10-28 20:55 | XMS REPORT | Summary of Care ---
:1985 Author Organization [facility] Address [address] [id number] Care Team Providers Name Role Phone Oscar Sutton DO Primary Care Provider [phone] Reason for Visit Reason Comments Post-op Follow-up Encounter Details Date Type Department Care Team Description 09/23/2019 Office Visit [facility] Rosalia Beckford, [place] Post-op Follow-up Medicine Neurosurger y [address], [address] [place] [address] [place] [address] [phone] Allergies No Known Allergiesdocumented as of this encounter (statuses as of 09/23/2019) Medications Medication Sig Dispensed Refills Start Date End Date Status pregabalin (LYRICA) 50 Take 50 mg by 0 05/26/2019 Active MG capsule mouth daily. TRULICITY 1.5 MG/0.5ML Inject 1.5 mg 0 07/06/2019 Active SOPN into the skin every 7 days. metformin (GLUCOPHAGE) Take 500 mg by 0 Active 500 MG tablet mouth daily. ciprofloxacin (CIPRO) Take 1 Tab by 6 Tab 0 08/24/2019 Active 250 MG mouth two times tabletIndications: daily. Urinary tract infection without hematuria, site unspecified sulfamethoxazole-trimeth Take 1 Tab by 20 Tab 0 09/10/2019 Active oprim (BACTRIM DS, mouth two times SEPTRA DS) 800-160 MG daily. per tabletIndications: Dysuria documented as of this encounter (statuses as of 09/23/2019) Active Problems Not on filedocumented as of this encounter (statuses as of 09/23/2019) Social History Tobacco Use Types Packs/Day Years Used Date Never Smoker Smokeless Tobacco: Never Used Alcohol Use Drinks/Week oz/Week Comments Never Alcohol Habits Answer Date Recorded How often do you have a drink containing alcohol? Never 08/18/2019 How many drinks containing alcohol do you have on a typical Not asked day when you are drinking? How often do you have six or more drinks on one occasion? No t asked Sex Assigned at Date Recorded Not on file documented as of this encounter Last Filed Vital Signs Vital Sign Reading Time Taken Comments Blood Pressure - - Pulse - - Temperature 36.7 C (98 F) 09/23/2019 12:36 PM CDT Respiratory Rate 15 09/23/2019 12:36 PM CDT Oxygen Saturation 100% 09/23/2019 12:36 PM CDT Inhaled Oxygen Concentration - - Weight 77 kg (169 lb 12.8 oz) 09/23/2019 12:36 PM CDT Height 162.6 cm (5' 4") 09/23/2019 12:36 PM CDT Body Mass Index 29.15 09/23/2019 12:36 PM CDT documented in this encounter Patient Instructions Patient InstructionsRosalia Beckford NP - 09/23/2019 12:30 PM CDTPost Operative Instructions 1. Walking is encouraged. Increase distance gradually. 2. No lifting greater than 20 pounds until seen at follow up appointment. 3. Avoid extreme bending and twisting of the lumbar spine. 4. Avoid activity with a potential for falling until cleared by surgeon. 5. You may drive as soon as it is comfortable. Do not drive while taking narcotic pain medications. 6. Sexual activity may be resumed when it is comfortable to do so. 7. Please call and follow up for: fever greater than 101.5; drainage from incision; pain increases at the incision site; newor persistent pain and weakness or numbness in you back/neck and arms/legs; swelling or tenderness develops in your legs; and problems controlling your bladder and bowels. 8. Please schedule 6 week post operative follow up appointment with Dr. Melendez prior to leaving clinic today or call [phone] to schedule. 9. Please contact our office sooner for questions or concerns. Your Body mass index is 29.15 kg/m. Body mass index (BMI) can help you see if your weight is raising your risk for health problems. It uses a formula to compare how much you weigh with how tall you are. A BMI between 18.5 and 24.9 is considered healthy. A BMI between 25 and 29.9 is considered overweight. A BMI of 30 or higher is considered obese. If your BMI is in the normal range, it means that you have a lower risk for weight-related health problems. If your BMI is in the overweight or obese range, you may be at increased risk for weight-related health problems, such as high blood pressure, heart disease, stroke, arthritis or joint pain, anddiabetes. BMI is just one measure of your risk for weight-related health problems. You may be at higher risk for health problems if you are not active, you eat an unhealthy diet, or you drink too much alcohol oruse tobacco products. Follow-up care is a zendejas part of your treatment and safety. Be sure to make and go to all appointments, and call your doctor if you are having problems. It's also a good idea to know your test results and keep a list of the medicines you take. How can you care for yourself at home? Practice healthy eating habits. This includes eating plenty of fruits, vegetables, whole grains, lean protein, and low-fat dairy. Get at least 30 minutes of exercise 5 days a week or more. Brisk walking is a good choice. You also may want to do other activities, such as running, swimming, cycling, or playing tennis or team sports. Do not smoke. Smoking can increase your risk for health problems. If you need help quitting, talkto your doctor about stop-smoking programs and medicines. These can increase your chances of quitting for good. Limit alcohol Where can you learn more? Go to [email or web address].[email or web address].[email or web address] Go to the Search tab with the magnifying glass on the right side of [employer] home page. Enter S176 in the search box to learn more about "Body Mass Index: Care Instructions." documented in this encounter Progress Notes Rosalia Beckford NP - 09/23/2019 12:30 PM CDT Referring Doctor: No referring provider defined for this encounter. Reason for visit: Follow up visit. I had the pleasure of seeing Ms. Carter at the neurosurgery clinic. The patient is a 34 y.o. female who underwent MIS right L5-S1 microdiscectomy on 09/07/2019 for a right L5-S1 disc herniation causing symptomatic lumbar radiculopathy. Pt is doing very well. She feels strength and gait have improved. Pain level is 0/10. UTI symptoms have resolved. She is also done with Cipro prescription. Patient returns for follow up to discuss her progress. CURRENT MEDICATIONS: Current Outpatient Medications Medication Sig Dispense Refill ciprofloxacin (CIPRO) 250 MG tablet Take 1 Tab by mouth two times daily. 6 Tab 0 metformin (GLUCOPHAGE) 500 MG tablet Take 500 mg by mouth daily. pregabalin (LYRICA) 50 MG capsule Take 50 mg by mouth daily. sulfamethoxazole-trimethoprim (BACTRIM DS, SEPTRA DS) 800-160 MG per tablet Take 1 Tab by mouth two times daily. 20 Tab 0 TRULICITY 1.5 MG/0.5ML SOPN Inject 1.5 mg into the skin every 7 days. No current facility-administered medications for this visit. REVIEW OF SYSTEMS: Review of Systems Constitution: Negative for chills, diaphoresis, fever, malaise/fatigue, night sweats and sleep disturbance. HENT: Negative for congestion, ear pain, hearing loss, hoarse voice, nosebleeds, sinus pressure, sore throat, tinnitus and trouble swallowing. Eyes: Negative for blurred vision, double vision, pain and visual halos. Cardiovascular: Negative for chest pain, irregular heartbeat and leg swelling. Respiratory: Negative for cough, shortness of breath and wheezing. Endocrine: Negative for cold intolerance, heat intolerance, polydipsia, polyphagia and polyuria. Skin: Negative for itching and rash. Musculoskeletal: Negative for arthralgias, back pain, falls, joint swelling, neck pain and muscle weakness. Gastrointestinal: Negative for abdominal pain, constipation, diarrhea, heartburn, nausea, vomiting, poor appetite and rectal bleeding. Genitourinary: Negative for bladder incontinence, dysuria and hematuria. Neurological: Negative for headaches, loss of balance, paresthesias, seizures, sensory change, tremors, leg numbness, numbness in saddle region, difficulty balancing, difficulty walking and falls. Psychiatric/Behavioral: Negative for altered mental status, depression, panic and restlessness. The patient does not have insomnia and is not nervous/anxious. PHYSICAL EXAM: Vitals: 08/13/20 1236 Resp: 15 Temp: 98 F (36.7 C) TempSrc: Temporal SpO2: 100% Weight: 169 lb 12.8 oz (77 kg) Height: 5' 4" (1.626 m) Patient is oriented to person, place and time. CN 2-12 are grossly intact bilaterally Motor exam: UE D B T WF WE IM Rt 5/5 5/5 5/5 5/5 5/5 5/5 Lt 5/5 5/5 5/5 5/5 5/5 5/5 LE: IP KE KF DF PF EHL Rt 5/5 5/5 5/5 5/5 5/5 5/5 Lt 5/5 5/5 5/5 5/5 5/5 5/5 Sensory exam : intact to light touch Gait: able to perform heel and toe walking Incision: Well healed MIS posterior lumbar incision DIAGNOSIS: Encounter Diagnosis and Orders ICD-10-CM 1. S/P discectomy for herniated nucleus pulposus Z98.890 Z87.39 2. Lumbosacral radiculopathy at S1 M54.17 3. Encounter for postoperative wound check Z48.89 ASSESSMENT/PLAN: Ms. Rekha Carter is a pleasant 34 y.o. female who underwent MIS right L5-S1 microdiscectomy on 09/07/2019. Patient is doing very well. We discussed the surgical procedure performed and expected post operative course. She was released back to work with restrictions effective 09/27/2019. I will see Rekha Carter at 3 months post op for follow up. Post Operative Instructions 1. Walking is encouraged. Increase distance gradually. 2. No lifting greater than 20 pounds until seen at follow up appointment. 3. Avoid extreme bending and twisting of the lumbar spine. 4. Avoid activity with a potential for falling until cleared by surgeon. 5. You may drive as soon as it is comfortable. Do not drive while taking narcotic pain medications. 6. Sexual activity may be resumed when it is comfortable to do so. 7. Please call and follow up for: fever greater than 101.5; drainage from incision; pain increases at the incision site; newor persistent pain and weakness or numbness in you back/neck and arms/legs; swelling or tenderness develops in your legs; and problems controlling your bladder and bowels. 8. Please schedule 6 week post operative follow up appointment with Dr. Melendez prior to leaving clinic today or call [phone] to schedule. 9. Please contact our office sooner for questions or concerns. documented in this encounter Plan of Treatment Health Maintenance Due Date Last Done Comments TETANUS SHOT (ADULT) 2001 HIV SCREENING 2004 CERVICAL CANCER SCREENING 3 YEAR FOLLOW UP 04/14/2007 FLU VACCINE > 6 MONTHS 09/11/2019 BMI FOLLOW UP PLAN 08/17/2020 08/18/2019 ZOSTER VACCINE (1 of 2) 2036 documented as of this encounter Results Not on filedocumented in this encounter Visit Diagnoses Diagnosis S/P discectomy for herniated nucleus pul posus - Primary Other postprocedural status Lumbosacral radiculopathy at S1 Thoracic or lumbosacral neuritis or radi culitis, unspecified Encounter for postoperative wound check Other specified aftercare following surg graham documented in this encounter Insurance Payer Benefit Plan / Subscriber ID Effective Dates Phone Addre ss Type Group [facility] [id number] Effective [place] [address] [address] [place] [address] documented as of this encounter
--- OUTSIDE RECORDS SUMMARY | 2019-10-28 20:55 | XMS REPORT | Summary of Care ---
:1985 Author Organization [facility] [place] [address] Care Team Providers Name Role Phone Oscar Sutton DO Primary Care Provider [phone] Reason for Visit Reason Comments Initial Consultation Leg Numbness Encounter Details Date Type Department Care Team Description [facility] Medicine Neurosurger y [address] Leg Numbness [address] [facility] 9 [address], [address] [place], [place] [id number] [phone] Allergies No Known Allergiesdocumented as of this encounter (statuses as of 08/19/2019) Medications Medication Sig Dispensed Refills Start Date End Date Status pregabalin (LYRICA) 50 Take 50 mg by 0 05/26/2019 Active MG capsule mouth daily. TRULICITY 1.5 MG/0.5ML Inject 1.5 mg into 0 07/06/19 20 Active SOPN the skin every 7 days. metformin (GLUCOPHAGE) Take 500 mg by 0 Active 500 MG tablet mouth daily. documented as of this encounter (statuses as of 08/19/2019) Active Problems Not on filedocumented as of this encounter (statuses as of 08/19/2019) Social History Tobacco Use Types Packs/Day Years [...] Travel End No recent travel history available. COVID-19 Exposure Response Date Recorded In the last month, have you been in contact with No / Unsure 08/18/2019 11:03 AM CDT someone who was confirmed or suspected to have Coronavirus / COVID-19? documented as of this encounter Last Filed Vital Signs Vital Sign Reading Time Taken Comments Blood Pressure 127/90 08/18/2019 11:58 AM CDT Pulse 88 08/18/2019 11:58 AM CDT Temperature 36.2 C (97.2 F) 08/18/2019 11:58 AM CDT Respiratory Rate 15 08/18/2019 11:58 AM CDT Oxygen Saturation 100% 08/18/2019 11:58 AM CDT Inhaled Oxygen Concentration - - Weight 75.8 kg (167 lb 3.2 oz) 08/18/2019 11:58 AM CDT Height 162.6 cm (5' 4") 08/18/2019 11:58 AM CDT Body Mass Index 28.7 08/18/2019 11:58 AM CDT documented in this encounter Patient Instructions Patient InstructionsRosalia Beckford NP - 08/18/2019 11:15 AM CDTYour MRI shows a L5-S1 disc herniation pressing on the nerve. Surgery is recommended. This will entail MIS right L5-S1 microdiscectomy. The indications, methods, alternatives, and risks of lumbar laminectomy with discectomy surgery weredescribed in detail. Indications include decompression of the thecal sac and nerve roots to alleviate symptoms. Methods include a minimally invasive surgical approach. Alternatives include continued conservative therapy with injections, physical therapy, and analgesic medications, or other procedures such as open decompression. Risks of surgery include, but are not limited to , coma, paralysis, infection, need for additional surgery, cerebrospinal fluid leak, delayed spinal instability, nerve root injury, etc. Medical complications including deep venous thrombosis and pulmonary embolism, pneumonia, urinary tract infection, cerebrovascular accident, blindness, and myocardial infarction, etc., were also reviewed. Your There is no height or weight on file to calculate BMI. Body mass index (BMI) can help you [...] Where can you learn more? Go to [email or web address] Go to the Search tab with the magnifying glass on the right side of [employer] home page. Enter S176 in the search box to learn more about "Body Mass Index: Care Instructions." documented in this encounter Progress Notes Devyn Melendez MD - 08/18/2019 11:15 AM CDT Referring Physician: Oscar Sutton, DO [address] [facility] [address] [place] [address] SUBJECTIVE: CHIEF COMPLAINT: Chief Complaint Patient presents with Initial Consultation Leg Numbness PRESENT ILLNESS: Ms. Carter is a 34 y.o. right handed female who presents to the [facility] with right leg numbness. The onset of these symptoms was approximately 18 months ago. This started without any inciting injury or event. She feels she is dragging her right leg. She has difficulty with pressing the pedal with driving for prolonged distances. The patient describes the pain asaching or pressure. It is 5 /10. It is worse with standing and walking. She reports more leg vs back pain. Patient tried conservative therapy with DIAMOND which improved pain, but numbness and weakness persist. She is taking Lyrica 50 mg qd. Symptoms are affecting ADL's. The patient denies bowel or bladder changes. Patient was referred to our clinic for further evaluation. CURRENT MEDICATIONS: Current Outpatient Medications Medication Sig Dispense Refill metformin (GLUCOPHAGE) 500 MG tablet Take 500 mg by mouth daily. pregabalin (LYRICA) 50 MG capsule Take 50 mg by mouth daily. TRULICITY 1.5 MG/0.5ML SOPN Inject 1.5 mg into the skin every 7 days. No current facility-administered medications for this visit. HISTORY: ALLERGIES: No Known Allergies PAST MEDICAL HISTORY: Past Medical History: Diagnosis Date Type 2 diabetes mellitus (HCCode) PAST SURGICAL HISTORY: Past Surgical History: Procedure Laterality Date HX SECTION 2002 HX SECTION 2004 HX SECTION 2005 FAMILY HISTORY: Family History Problem Relation Name Age of Onset Breast Cancer Mother SOCIAL HISTORY: Social History Tobacco Use Smoking status: Never Smoker Smokeless tobacco: Never Used Substance Use Topics Alcohol use: Never Frequency: Never REVIEW OF SYSTEMS: Review of Systems Constitution: Negative for chills, diaphoresis, fever, malaise/fatigue and night sweats. HENT: Negative for congestion, hearing loss, hoarse voice, nosebleeds, sore throat and tinnitus. Eyes: Negative for blurred vision, double vision, redness, visual disturbance and visual halos. Cardiovascular: Negative for chest pain, irregular heartbeat and leg swelling. Respiratory: Negative for cough, shortness of breath and wheezing. Endocrine: Negative for cold intolerance, heat intolerance, polydipsia, polyphagia and polyuria. Hematologic/Lymphatic: Negative for adenopathy and bleeding problem. Does not bruise/bleed easily. Skin: Negative for itching and rash. Musculoskeletal: Positive for back pain, muscle weakness and neck pain. Negative for falls, joint pain and joint swelling. Gastrointestinal: Negative for abdominal pain, constipation, diarrhea, dysphagia, heartburn, nausea and vomiting. Genitourinary: Negative for bladder incontinence, dysuria and hematuria. Neurological: Positive for numbness. Negative for disturbances in coordination, dizziness, headaches, loss of balance, paresthesias, seizures and tremors. Psychiatric/Behavioral: Negative for depression. The patient does not have insomnia and is not nervous/anxious. OSWESTRY DISABILITY SCORE: 18% SF-36v2 score: Physical functionin % Role limitations due to physical health: 75 % Role limitations due to emotional problems: 66.7 % Energy/fatigue: 45 % Emotional well-bein % Social functionin.5 % Pain: 32.5 % General health: 40 % Health change: 25 % OBJECTIVE: PHYSICAL EXAM: Vital Signs Height: 5' 4" (162.6 cm) Weight - Scale: 167 lb 3.2 oz (75.8 kg) Temp: 97.2 F (36.2 C) Temp Source: Skin Pulse: 88 Respirations: 15 BP: 127/90 Patient Position: Sitting Cuff Size: small BP Location: left arm Height and Weight BSA (Calculated - sq m): 1.85 sq meters BMI (Calculated): 28.8 Predicted Body Weight: 120.59 Body mass index is 28.7 kg/m. Constitutional: Oriented to person, place, and time and well-developed, well- nourished, and in no distress. Head: Normocephalic and atraumatic. CN 2-12 are grossly intact bilaterally Test Coordination: Finger to nose, rapid alternating movement are grossly intact Speech is fluent, non-dysarthric. Eyes: PERRL, EOMI. Vision is grossly intact. Pulm: Respirations are regular and unlabored Cardio: There is no peripheral edema, cyanosis or pallor. Extremities are warm and well perfused. Neck: No lymphadeoapthy Psychiatric: Mood, memory, affect and judgment normal. Skin: no rashes Musculoskeletal: No loss of muscle tone or atrophy noted. MOTOR UE Extremity Deltoid C5 Biceps C6 Triceps C7 Wrist Extensor C6 Wrist Flexor C7 Intrinsic Muscles C7, C8 Right 5/5 5/5 5/5 5/5 5/5 5/5 Left 5/5 5/5 5/5 5/5 5/5 5/5 DTR: Reflexes Biceps Triceps Brachioradialis Knee Ankles Toe response Babinski Right 2+ 2+ 2+ 2+ 2+ Downgoing Left 2+ 2+ 2+ 2+ 2+ Downgoing Sensory exam: normal light touch sensation ROM: full Tone: normal Beltran's: absent bilaterally THORACIC/LUMBAR ROM: moderately decreased Pain with active ROM: no Scoliosis: no Palpation: non-tender Palpable mass or focal swelling/redness: no palpable mass Muscle spasm: No LOWER EXTREMITIES Lower Extremity Iliopsoas Hip Flexors L2-3 Quadriceps Knee Extension L3-4 HamstringsKnee Flexion Tibialis anterior Dorsiflexors - L5 Gastrocnemius, soleus Plantar Flexors - S1 EHL Toe DF L5 Right 5/5 5/5 5/5 5/5 4+/5 5/5 Left 5/5 5/5 5/5 5/5 5/5 5/5 Sensory exam : decreased in the right S1 distribution Extremity edema: absent Proprioception intact No SI joint tenderness No trochanteric tenderness SLR: Negative Tone: normal Clonus: absent Gait: Able to heel and toe walk Assistive devices: Unable to toe walk on the right IMAGING STUDIES: The imaging studies were reviewed. The MRI films of the lumbar spine (outside imaging) dated 07/09/2019 shows: 1. L5-S1 disc herniation The MRI films of the cervical spine (outside imaging) dated 08/04/2019 was unremarkable. Diagnostic Studies regarding patient complaints reviewed. Please see diagnostic report for further detail. ASSESSMENT & PLAN: DIAGNOSIS: Encounter Diagnosis and Orders ICD-10-CM 1. Herniated nucleus pulposus, L5-S1 M51.27 2. Lumbosacral radiculopathy at S1 M54.17 Plans/Recommendations: Ms. Rekha Carter is a 34 y.o. female who presents to the [facility] with S1 radiculopathy. After review of patients symptoms, neurological exam, and diagnostic testing, imaging studies reveal a L5-S1 disc bulge/herniation that correlates with her symptoms. The patient has tried conservative therapy which has provided relief of pain but numbness and weakness symptom persist. Treatment options were discussed including observation, conservative, and surgical. Given her signs and symptoms, surgery is an option. This would entail MIS right L5-S1 microdiscectomy. The indications, methods, alternatives, and risks of lumbar laminectomy with discectomy surgery weredescribed in detail to the patient. Indications include decompression of the thecal sac and nerve roots to alleviate the patient's symptoms. Methods include a minimally invasive surgical approach. Alternatives include continued conservative therapy with injections, physical therapy, and analgesic medications, or other procedures such as open decompression. Risks of surgery include, but are not limited to , coma, paralysis, infection, need for additional surgery, cerebrospinal fluid leak, delayed spinal instability, nerve root injury, etc. Medical complications including deep venous thrombosis and pulmonary embolism, pneumonia, urinary tract infection, cerebrovascular accident, blindness,and myocardial infarction, etc., were also reviewed. The patient understands these risks and agrees to proceed. Surgery will be scheduled in the near future. Devyn Melendez MD Telemetry Technician [facility] Department of Neurosurgery osalia Beckford NP - 08/18/2019 11:15 AM CDT documented in this encounter Plan of Treatment Date Type Specialty Care Team Description 09/02/2019 Clinical Support Pathology Resource, Covid-19 Testi Site 09/07/2019 Appointment Neurosurgery Devyn Melendez MD [address] [facility] [address] [place], [place] [address] [phone] Health Maintenance Due Date Last Done Comments TETANUS SHOT (ADULT) 2001 HIV SCREENING 2004 CERVICAL CANCER SCREENING 3 YEAR FOLLOW UP 04/14/2007 FLU VACCINE > 6 MONTHS 09/11/2019 BMI FOLLOW UP PLAN 08/17/2020 08/18/2019 documented as of this encounter Results Not on filedocumented in this encounter Visit Diagnoses Diagnosis Herniated nucleus pulposus, L5-S1 - Prim himanshu Displacement of lumbar intervertebral di sc without myelopathy Lumbosacral radiculopathy at S1 Thoracic or lumbosacral neuritis or radi culitis, unspecified documented in this encounter Insurance Payer Benefit Plan / Subscriber ID Effective Dates Phone Addre ss Type Group [facility] CHOICE/CHOICE xxxxxxxxxxxx 2019-Presen [address] [address] PPO PLUS/OPTIONS [facility] [place] [address] documented as of this encounter
--- OUTSIDE RECORDS SUMMARY | 2019-10-28 20:55 | XMS REPORT ---
:1985 Author Organization [employer] Care Team Providers Name Role Phone Oscar Sutton Provider Role Unavailable Allergies No Known Allergies Problems Problem Type Condition Code Onset Dates Condition Statu s Problem Acute low back pain without M54.5 Active sciatica, unspecified back pain laterality Problem Tubal ligation status Z98.51 Active Problem Abnormal urine R82.90 Active Problem Type 2 diabetes mellitus without E11.9 Active complication, without long-term current use of insulin Problem Adult BMI 34.0-34.9 kg/sq m Z68.34 Active Problem Constipation, unspecified K59.00 Ac tive constipation type Problem Noncompliance with dietary Z91.11 A ctive restriction Problem Herniated lumbar intervertebral M51.26 Active disc Problem Mixed hyperlipidemia E78.2 Active Problem Well woman exam with routine Z01.419 Active gynecological exam Problem Right leg paresthesias R20.2 Activ e Problem Type 2 diabetes mellitus with other E11.29 Active diabetic kidney complication Medications No Known Medications Results No Known Results Summary Purpose [employer] Submission
--- NOTE | 2019-10-28 23:49 | ER ---
Nurse's Notes [facility] Name: Rekha Irvin Age: 34 yrs Sex: Female : 1985 Arrival Date: 10/28/2019 Time: 20:53 Bed 25 Private MD: Diagnosis: Paresthesia and weakness right leg. S/P back surgery Presentation: 10/27 21:48 Chief complaint: Patient states: I have been having issues with my right leg. I feel jb4 like it has been going numb. I had back surgery on September 06. They think it has impacted one of my nerves. I have since had numbness and weakness in my right leg causing me to stumble and fall at home. Surgery was done at [facility]. Coronavirus screen: Client denies travel out of the [place] in the last 14 days. At this time, the client does not indicate any symptoms associated with coronavirus-19. Ebola Screen: No symptoms or risks identified at this time. Initial Sepsis Screen:. Initial Sepsis Screen: Does the patient meet any 2 criteria? HR > 90 bpm. Yes Does the patient have a suspected source of infection? No. Patient's initial sepsis screen is negative. Risk Assessment: Do you want to hurt yourself or someone else? Patient reports no desire to harm self or others. Onset of symptoms was October 14, 2019. Transition of care: patient was not received from another setting of care. 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 - Social history:: Smoking status: Patient denies any tobacco usage or history of. Patient/guardian denies using alcohol, street drugs. Screenin:21 Abuse screen: Denies threats or abuse. Denies injuries from another. Nutritional ch2 screening: No deficits noted. Tuberculosis screening: No symptoms or risk factors identified. Never had TB. Fall Risk None identified. Assessment: 23:19 General: Appears in no apparent distress. well groomed, well developed, well nourished, ch2 Behavior is calm, cooperative, appropriate for age. Neuro: Level of Consciousness is awake, alert, obeys commands, Oriented to person, place, time, Ict Quality Assurance Engineer are equal bilaterally Moves all extremities. Full function Speech is normal, Facial symmetry appears normal, Reports numbness in right leg and left leg. Cardiovascular: Capillary refill is brisk in bilateral fingers Patient's skin is warm and dry. Chest pain is denied. Respiratory: Airway is patent Respiratory effort is even, unlabored, Respiratory pattern is regular, symmetrical. GI: No signs and/or symptoms were reported involving the gastrointestinal system. : No signs and/or symptoms were reported regarding the genitourinary system. EENT: No signs and/or symptoms were reported regarding the EENT system. Derm: Skin is pink, warm \T\ dry. Musculoskeletal: Circulation, motion, and sensation intact. Range of motion: intact in all extremities. Vital Signs: 21:48 BP 147 / 101; Pulse 103; Resp 16; Temp 98.3(TE); Pulse Ox 99% on R/A; Weight 79.38 kg jb4 (R); Height 5 ft. 2 in. (157.48 cm) (R); Pain 6/10; 23:40 BP 136 / 82; Pulse 89; Resp 16; Temp 98.3; Pulse Ox 99% on R/A; sg 21:48 Body Mass Index 32.01 (79.38 kg, 157.48 cm) jb4 ED Course: 20:53 Patient arrived in ED. cl3 21:51 Triage completed. jb4 21:52 Arm band placed on right wrist. jb4 22:54 Rod Pedersen, RN is Primary Nurse. sg 23:19 No provider procedures requiring assistance completed. Patient did not have IV access ch2 during this emergency room visit. 23:30 Patient has correct armband on for positive identification. Bed in low position. Call sg light in reach. Pulse ox on. NIBP on. 23:31 Dylon Jordan MD is Attending Physician. pkl Administered Medications: No medications were administered Outcome: 23:40 Discharged to home ambulatory, with family. sg 23:40 Condition: good 23:40 Discharge instructions given to patient, Instructed on discharge instructions, follow up and referral plans. medication usage, safety practices, Demonstrated understanding of instructions, follow-up care, medications, Prescriptions given X 1. 23:49 Discharge ordered by . roscoe 23:51 Patient left the ED. sg Signatures: Rod Pedersen RN RN sg Lam, Pin, MD MD pkl Bryson, James RN RN jb4 Delmi Villa RN RN ch2 Vignesh Lara cl3
--- NOTE | 2019-10-28 23:50 | EDPHYS ---
Physician Documentation [facility] Name: Rekha Irvin Age: 34 yrs Sex: Female : 1985 Arrival Date: 10/28/2019 Time: 20:53 Bed 25 Private MD: ED Physician Dylon Jordan HPI: 10/27 23:41 This 34 yrs old Female presents to ER via Wheelchair with complaints of Leg pkl Numbness. 23:41 The patient presents with numbness and weakness right leg. Onset: The symptoms/episode pkl began/occurred 1 week(s) ago. S/P back surgery 6 weeks ago. 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 - Social history:: Smoking status: Patient denies any tobacco usage or history of. Patient/guardian denies using alcohol, street drugs. ROS: 23:41 Eyes: Negative for injury, pain, redness, and discharge, ENT: Negative for injury, pkl pain, and discharge, Neck: Negative for injury, pain, and swelling, Cardiovascular: Negative for chest pain, palpitations, and edema, Respiratory: Negative for shortness of breath, cough, wheezing, and pleuritic chest pain, Abdomen/GI: Negative for abdominal pain, nausea, vomiting, diarrhea, and constipation, Back: Negative for injury and pain, : Negative for injury, bleeding, discharge, and swelling, Skin: Negative for injury, rash, and discoloration. 23:41 MS/extremity: Positive for paresthesias, of the right leg, weakness. 23:41 Skin: Negative for rash. 23:41 Neuro: Negative for altered mental status. Exam: 23:41 Head/Face: Normocephalic, atraumatic. Eyes: Pupils equal round and reactive to light, pkl extra-ocular motions intact. Lids and lashes normal. Conjunctiva and sclera are non-icteric and not injected. Cornea within normal limits. Periorbital areas with no swelling, redness, or edema. ENT: Nares patent. No nasal discharge, no septal abnormalities noted. Tympanic membranes are normal and external auditory canals are clear. Oropharynx with no redness, swelling, or masses, exudates, or evidence of obstruction, uvula midline. Mucous membranes moist. Neck: Trachea midline, no thyromegaly or masses palpated, and no cervical lymphadenopathy. Supple, full range of motion without nuchal rigidity, or vertebral point tenderness. No Meningismus. Chest/axilla: Normal chest wall appearance and motion. Nontender with no deformity. No lesions are appreciated. Cardiovascular: Regular rate and rhythm with a normal S1 and S2. No gallops, murmurs, or rubs. Normal PMI, no JVD. No pulse deficits. Respiratory: Lungs have equal breath sounds bilaterally, clear to auscultation and percussion. No rales, rhonchi or wheezes noted. No increased work of breathing, no retractions or nasal flaring. Abdomen/GI: Soft, non-tender, with normal bowel sounds. No distension or tympany. No guarding or rebound. No evidence of tenderness throughout. Back: No spinal tenderness. No costovertebral tenderness. Full range of motion. Skin: Warm, dry with normal turgor. Normal color with no rashes, no lesions, and no evidence of cellulitis. Neuro: Awake and alert, GCS 15, oriented to person, place, time, and situation. Cranial nerves II-XII grossly intact. Motor strength 5/5 in all extremities. Sensory grossly intact. Cerebellar exam normal. Normal gait. 23:41 Musculoskeletal/extremity: Extremities: grossly normal except: noted in the right leg: numbness and weakness. Vital Signs: 21:48 BP 147 / 101; Pulse 103; Resp 16; Temp 98.3(TE); Pulse Ox 99% on R/A; Weight 79.38 kg jb4 (R); Height 5 ft. 2 in. (157.48 cm) (R); Pain 6/10; 23:40 BP 136 / 82; Pulse 89; Resp 16; Temp 98.3; Pulse Ox 99% on R/A; sg 21:48 Body Mass Index 32.01 (79.38 kg, 157.48 cm) jb4 MDM: 23:31 Patient medically screened. pkl 23:46 Data reviewed: vital signs, nurses notes. ED course: Advised patient to follow up with pkl her back nathalia in 1 to 2 days. Patient understood instruction. 10/27 23:40 Order name: Crutch Training; Complete Time: 23:48 sg 10/27 23:40 Order name: Crutches; Complete Time: 23:48 sg Administered Medications: No medications were administered Disposition: 10/28/19 23:49 Discharged to Home. Impression: Paresthesia and weakness right leg. S/P back surgery. - Condition is Stable. - Prescriptions for Diclofenac Sodium 75 mg Oral Tablet, Delayed Release (E.C.) - take 1 tablet by ORAL route 2 times per day; 20 tablet. - Medication Reconciliation Form, Thank You Letter, Antibiotic Education, Prescription Opioid Use form. Signatures: Rod Pedersen RN Dylon Saleem MD MD pkl Bryson, James RN RN jb4 Corrections: (The following items were deleted from the chart) 23:51 23:49 10/28/2019 23:49 Discharged to Home. Impression: Paresthesia and weakness right sg leg. S/P back surgery. Condition is Stable. Forms are Medication Reconciliation Form, Thank You Letter, Antibiotic Education, Prescription Opioid Use. pkl
[2019-10-29 13:27] VITALS: BP 147/101; TEMP 98.3; O2SAT 99
== END 2019-10-28 23:51 | disposition home or self-care (01) ==
LOC: ER 20:52
DX: R53.1 Weakness (principal); Z98.890 Other specified postprocedural states; E11.9 Type 2 diabetes mellitus without complications; Z79.4 Long term (current) use of insulin
CPT/HCPCS: 99283

== ENCOUNTER 2021-01-10 08:13 | Day surgery (SDC) | payer BC ==
[2021-01-10 09:13] LABS: Protime INR 1.03
[2021-01-10 09:15] VITALS: BMI 29.2
--- NOTE | 2021-01-10 11:54 | RAD REPORT ---
EXAM DESCRIPTION: RAD - Lumbar Puncture For Dx - 01/10/2021 11:37 am CLINICAL HISTORY: Possible multiple sclerosis COMPARISON: None. TECHNIQUE: The procedure, risks and alternatives to the procedure were discussed with the patient in detail. After answering all questions, both oral and written consent were obtained. Time-out procedu re was performed. The patient was placed in an oblique prone position on the fluoroscopic table. The skin of the lower back was prepped and draped in the usual sterile fashion. After anesthetizing the skin and deeper sof t tissues with 1% lidocaine, a 22 gauge needle was advanced into the thecal sac at the L2-3 level. At the conclusion of the procedure the needle was withdrawn and a sterile bandage placed over the pun cture site. The patient tolerated the procedure well without immediate complications. Post-procedure care and precaution instructions were discussed with the patient before the LP procedure. IMPRESSION: Successful fluoroscopic guided lumbar puncture. All obtained fluid was sent to the lab f or studies requested by the referring physician.
[2021-01-10 13:32] LABS: Appearance CLEAR (CLEAR); Body Fluid Source CSF; Body Fluid WBC 3 /mm^3; Color of fluid Colorless (COLORLESS); Fluid Total Volume 6.5 ml
[2021-01-10 13:34] VITALS: BP 146/97; TEMP 98.1; O2SAT 99
[2021-01-10 13:47] LABS: CSF Glucose 74 mg/dL (40-70)
== END 2021-01-10 13:10 | disposition home or self-care (01) ==
LOC: DS 08:13 → EDSTATUS 10:00 → DS 13:10
PROVIDERS: ATTEND Psychiatry & Neurology Neurology with Special Qualifications in Child Neurology
PROC: 009U3ZX Drainage of Spinal Canal, Percutaneous Approach, Diagnostic (ICD-10-PCS; principal; 2021-01-10)
DX: G35 Multiple sclerosis (principal)
CPT/HCPCS: 36415; 77003; 82164; 82945; 83873; 83916; 84157; 85049; 85610; 85730; 86592; 86617; 87015; 87116; 87206; 88108; 89050

== ENCOUNTER 2023-06-17 12:27 | Emergency (ER) | payer BC ==
[2023-06-17] MEDS ORDERED: dexAMETHasone 10 MG/ML VIAL ONE (12:48)
[2023-06-17] MEDS ORDERED: NA CHLORIDE 0.9% 1,000 ML ONE (12:49)
[2023-06-17] MEDS ORDERED: KETOROLAC 30 MG/ML INJ ONE (12:49)
[2023-06-17 13:09] LABS: Absolute Basophils 0.1 K/uL (0-0.5); Absolute Eosinophils 0.1 K/uL (0-0.5); Absolute Lymphocytes (CBC) 1.6 K/uL (0.7-4.9); Absolute Monocytes 0.4 K/uL (0.1-1.3); Absolute Neutrophil 2.6 K/uL (1.8-8.0); Basophils % 1.2 % (0-1.3); Eosinophils % 1.2 % (0-4.4); Hemoglobin 13.6 g/dL (12.0-15.0); Lymphocytes % 34.1 % (15.3-44.8); MCH 31.1 pg (27.0-35.0); MCHC 33.1 g/dL (32.0-36.0); MCV 94.1 fL (80-100); MPV 7.3 fL (7.6-11.3); Monocytes % 8.4 % (3.3-12.3); Neutrophils % 55.1 % (41.7-73.7); Platelets 363 thou/uL (152-406); RBC Red Blood Cell Count 4.36 M/uL (3.86-4.86); Red Cell Distribution Width 12.2 % (12.1-15.2)
[2023-06-17 13:36] LABS: Albumin 4.5 g/dL (3.4-5.0); Albumin/Globulin Ratio 1.3 (1.1-1.8); Anion Gap 5.4 mEq/L (5.0-15.0); Bilirubin Total 0.7 mg/dL (0.2-1.0); Globulin 3.6 g/dL (2.3-3.5); Potassium 3.4 mEq/L (3.5-5.1); Protein, Total 8.1 g/dL (6.4-8.2)
[2023-06-17 16:28] LABS: Specific Gravity 1.014 (1.005-1.030)
[2023-06-17 16:33] LABS: Specific Gravity 1.014 (1.005-1.030); Sqamous Epithelial <5 /HPF (None Seen); Urine Bacteria <20 /HPF (<20); Urine Bilirubin NEGATIVE (Negative); Urine Blood 3+ (OVER) (Negative); Urine Clarity Extremely Turbid (Clear); Urine Color Light-Yellow (Yellow); Urine Culture Reflex Order NOT NEEDED; Urine Glucose NEGATIVE (Negative); Urine Ketones 1+ (Negative); Urine Micro Reflex YN NO BILL MICROSCOPIC; Urine Mucus Slight /HPF (None Seen); Urine Nitrite 2+ (Negative); Urine Protein NEGATIVE (Negative); Urine RBC 21-50 /HPF (None Seen); Urine Urobilinogen Normal (Normal); Urine WBC <5 /HPF (<5); Urine pH 5.5 (5.0-7.0)
--- NOTE | 2023-06-17 17:32 | RAD REPORT ---
EXAM DESCRIPTION: MRI - Brain W/Wo Cont - 06/17/2023 2:47 pm CLINICAL HISTORY: MS flare COMPARISON: Brain MRI 11/30/2021 TECHNIQUE: Multiplanar multisequence MRI of the brain performed before and after intravenous adminis tration of 14 mL MultiHance. FINDINGS: No evidence of acute infarct. No evidence of acute intracranial hemorrhage or abnormal extra-axial fluid collections. Mild diffuse parenchymal volume loss. Ventricular caliber otherwise within normal for age. Midline st ructures are unremarkable. Extensive subcortical and periventricular white matter T2/FLAIR hyperintensities, as well as few infr atentorial hyperintensities, many of these are arranged perpendicular to the axis of the corpus callo sum, and many central foci demonstrate T1 hypointense signal/ vacuolation. These are most compatible with provided history of demyelinating disease. A subtle right frontal subcortical focus on series 4, image 18 demonstrates mild diffusion restriction, and may represent an active focus of demyelination . No mass effect or midline shift. No abnormal enhancement. Major vascular flow voids are preserved. Mastoid air cells and paranasal sinuses are clear. IMPRESSION: Extensive white matter signal abnormalities most compatible with provided history of dem yelinating disease. These include a subtle right frontal subcortical focus of T2 hyperintensity, demonstrating mild diffu mary restriction, which may represent an active focus of demyelination. No abnormal enhancement.
--- NOTE | 2023-06-17 17:45 | EDPHYS ---
Physician Documentation [facility] Name: Rekha Jacobson Age: 38 yrs Sex: Female : 1985 Arrival Date: 06/17/2023 Time: 12:27 Bed 14 Private MD: [facility] ED Physician Vinod Bray HPI: 06/16 12:46 This 38 yrs old Female presents to ER via Ambulatory with complaints of ec2 Headache. 12:46 Patient arrives today for evaluation of headache. Patient complaining of headache ec2 ongoing for several days and progressively worsening over time. No sudden onset component to this. Patient reports no vomiting, no diarrhea. Patient reports history of multiple sclerosis. Patient reports no falls injuries or trauma. Patient reports she been taking some Tylenol as well as ibuprofen with minimal alleviation in symptoms. . Historical: - Allergies: 12:34 No Known Allergies; as6 - PMHx: 12:34 Diabetes - NIDDM; MS (Diabetes - NIDDM); as6 - PSHx: 12:34 section; Cholecystectomy; hernia; as6 - Immunization history:: Adult Immunizations up to date. - Infectious Disease History:: Denies. - Social history:: Smoking status: Patient denies any tobacco usage or history of. ROS: 12:46 Constitutional: as per hpi ec2 Exam: 12:46 Constitutional: GEN: NAD Head: atraumatic Eyes: EOMI Ears: External ears are ec2 normal. CV: regular rate LUNGS: no respiratory distress ABD: non-distended SKIN: no evidence of rashes MSK: no evidence of trauma NEURO: moves all extremities equally, cranial nerves II through XII intact, strength intact all 4 extremities, no pronator drift appreciated. Vital Signs: 12:33 BP 122 / 84; Pulse 96; Resp 16 S; Temp 97.2(TE); Pulse Ox 99% on R/A; Weight 61.23 kg as6 (R); Height 5 ft. 2 in. (R); Pain 8/10; 14:07 BP 114 / 73; Pulse 69; Resp 16 S; Pulse Ox 96% on R/A; kc6 16:18 BP 141 / 97; Pulse 70; Resp 16 S; Pulse Ox 100% on R/A; kc6 17:10 BP 156 / 109; Pulse 89; Resp 16 S; Pulse Ox 99% on R/A; kc6 18:01 BP 155 / 109; Pulse 99; Resp 18 S; Pulse Ox 99% on R/A; kc6 12:33 Body Mass Index 24.69 (61.23 kg, 157.48 cm) as6 12:33 Pain Scale: Adult as6 MDM: 12:37 Patient medically screened. ec2 12:46 Data reviewed: vital signs. ED course: Patient arrives today for headache. Examination ec2 markable for neuro intact individual is otherwise in no acute distress. Will obtain lab work, treat appears symptoms and obtain MR to evaluate for MS flare. Additionally consider other such as intracranial masses, brain bleeds.. 13:42 ED course: Metabolic profile shows slight hypokalemia. . ec2 16:41 ED course: Patient with nitrates present in the urine, will treat for UTI with Keflex.. ec2 17:42 ED course: MR shows subtle hyperintensity concern for possible small active focus of ec2 demyelination consistent with patient's known history of MS. Will get patient hide of steroids, tremor for several days as well. Will have her follow-up with Dr. Barraza, neurology. Will discharge home. Return precautions given. Patient otherwise with no neurologic symptoms to indicate inpatient admission at this time . 06/16 12:46 Order name: CBC with Diff; Complete Time: 13:16 ec2 06/16 12:46 Order name: CMP; Complete Time: 13:42 ec2 06/16 12:46 Order name: UAM; Complete Time: 16:40 ec2 06/16 12:46 Order name: Test, Urine; Complete Time: 16:40 ec2 06/16 12:46 Order name: MRI - Brain W/Wo Cont; Complete Time: 17:33 ec2 06/16 17:43 Order name: Misc. Order: give 1000mg methylprednisolone; Complete Time: 18:00 ec2 Administered Medications: 13:10 Drug: NS 0.9% IV 1000 ml IV at 1 bolus Per protocol; 1000 mL bolus Route: IV; Rate: 1 kc6 bolus; Site: left antecubital; 16:18 Follow up: Response: No adverse reaction; IV Status: Completed infusion; IV Intake: kc6 1000ml 13:10 Drug: Ketorolac IVP 15 mg IVP once Route: IVP; Site: left antecubital; kc6 13:47 Follow up: Response: No adverse reaction; Pain is decreased kc6 13:10 Drug: Droperidol IVP 2.5 mg IVP once Route: IVP; Site: left antecubital; kc6 13:47 Follow up: Response: No adverse reaction kc6 13:10 Drug: Decadron - Dexamethasone IVP 10 mg IVP once Route: IVP; Site: left antecubital; kc6 13:47 Follow up: Response: No adverse reaction kc6 18:00 Drug: MethylPrednisoLONE IVP 1000 mg IVP once Route: IVP; Site: left antecubital; kc6 18:17 Follow up: Response: No adverse reaction kc6 Disposition Summary: 06/17/23 17:44 Discharge Ordered Notes: Location: Home ec2 Condition: Stable ec2 Diagnosis - Hypokalemia ec2 - Headache ec2 - UTI/ Urinary tract infection, site not specified ec2 - Multiple sclerosis ec2 Followup: ec2 - With: Private Physician - When: - Reason: Re-evaluation by your physician Discharge Instructions: - Discharge Summary Sheet ec2 - General Headache Without Cause ec2 Forms: - Medication Reconciliation Form ec2 - Antibiotic Education ec2 - Prescription Opioid Use ec2 - Patient Portal Instructions ec2 - Leadership Thank You Letter ec2 Prescriptions: - methylprednisolone 32 mg Oral tablet - take 1000 milligram ORAL route daily for 2 days Take 1000mg of ec2 methyprednisolone once daily for two days for your Multiple Sclerosis flare; 62.5 tablet; Refills: 0, Product Selection Permitted - Cephalexin 500 mg Oral capsule - take 1 capsule ORAL route every 12 hours for 5 days; 10 capsule; Refills: 0, ec2 Product Selection Permitted Signatures: Dispatcher [employer] Medhat Humphries RN RN as6 Shagufta Flores RN RN kc6 Vinod Bray MD MD ec2
--- NOTE | 2023-06-17 17:45 | ER ---
Nurse's Notes [facility] Name: Rekha Jacobson Age: 38 yrs Sex: Female : 1985 Arrival Date: 06/17/2023 Time: 12:27 Bed 14 Private MD: Oscar Sutton Diagnosis: Hypokalemia;Headache;UTI/ Urinary tract infection, site not specified;Multiple sclerosis Presentation: 06/16 12:33 Chief complaint: Patient states: headache for the last several day. Coronavirus screen: as6 At this time, the client does not indicate any symptoms associated with coronavirus-19. Ebola Screen: No symptoms or risks identified at this time. Initial Sepsis Screen: Does the patient meet any 2 criteria? No. Patient's initial sepsis screen is negative. Does the patient have a suspected source of infection? No. Patient's initial sepsis screen is negative. Risk Assessment: Do you want to hurt yourself or someone else? Patient reports no desire to harm self or others. Onset of symptoms was June 15, 2023. 12:33 Method Of Arrival: Ambulatory as6 12:33 Acuity: DIAMOND 3 as6 Historical: - Allergies: 12:34 No Known Allergies; as6 - PMHx: 12:34 Diabetes - NIDDM; MS (Diabetes - NIDDM); as6 - PSHx: 12:34 section; Cholecystectomy; hernia; as6 - Immunization history:: Adult Immunizations up to date. - Infectious Disease History:: Denies. - Social history:: Smoking status: Patient denies any tobacco usage or history of. Screenin:12 [facility] ED Fall Risk Assessment (Adult) History of falling in the last 3 months, kc6 including since admission No falls in past 3 months (0 pts) Confusion or Disorientation No (0 pts) Intoxicated or Sedated No (0 pts) Impaired Gait No (0 pts) Mobility Assist Device Used No (0 pt) Altered Elimination No (0 pt) Score/Fall Risk Level 0 - 2 = Low Risk. Abuse screen: Denies threats or abuse. Denies injuries from another. Nutritional screening: No deficits noted. Tuberculosis screening: No symptoms or risk factors identified. Assessment: 13:05 Reassessment: pt states, "there is no way I'm . Neither one of us can have kc6 kids." Dr. Bray notified, ok to give Droperidol. 14:06 Reassessment: Patient appears in no apparent distress at this time. No changes from kc6 previously documented assessment. Patient and/or family updated on plan of care and expected duration. Pain level reassessed. Patient is alert, oriented x 3, equal unlabored respirations, skin warm/dry/pink. 15:06 Reassessment: Patient appears in no apparent distress at this time. No changes from kc6 previously documented assessment. Patient and/or family updated on plan of care and expected duration. Pain level reassessed. Patient is alert, oriented x 3, equal unlabored respirations, skin warm/dry/pink. 16:18 Reassessment: Patient appears in no apparent distress at this time. No changes from kc6 previously documented assessment. Patient and/or family updated on plan of care and expected duration. Pain level reassessed. Patient is alert, oriented x 3, equal unlabored respirations, skin warm/dry/pink. 17:10 Reassessment: Patient appears in no apparent distress at this time. No changes from kc6 previously documented assessment. Patient and/or family updated on plan of care and expected duration. Pain level reassessed. Patient is alert, oriented x 3, equal unlabored respirations, skin warm/dry/pink. 18:01 Reassessment: Patient appears in no apparent distress at this time. No changes from kc6 previously documented assessment. Patient and/or family updated on plan of care and expected duration. Pain level reassessed. Patient is alert, oriented x 3, equal unlabored respirations, skin warm/dry/pink. Vital Signs: 12:33 BP 122 / 84; Pulse 96; Resp 16 S; Temp 97.2(TE); Pulse Ox 99% on R/A; Weight 61.23 kg as6 (R); Height 5 ft. 2 in. (R); Pain 8/10; 14:07 BP 114 / 73; Pulse 69; Resp 16 S; Pulse Ox 96% on R/A; kc6 16:18 BP 141 / 97; Pulse 70; Resp 16 S; Pulse Ox 100% on R/A; kc6 17:10 BP 156 / 109; Pulse 89; Resp 16 S; Pulse Ox 99% on R/A; kc6 18:01 BP 155 / 109; Pulse 99; Resp 18 S; Pulse Ox 99% on R/A; kc6 12:33 Body Mass Index 24.69 (61.23 kg, 157.48 cm) as6 12:33 Pain Scale: Adult as6 ED Course: 12:29 Patient arrived in ED. mr 12:30 Oscar Sutton DO is Private Physician. mr 12:34 Triage completed. as6 12:34 Vinod Bray MD is Attending Physician. ec2 12:34 Arm band placed on. as6 12:35 Shagufta Flores RN is Primary Nurse. kc6 13:10 Inserted saline lock: 20 gauge in left antecubital area, using aseptic technique. Blood kc6 collected. 13:12 Patient has correct armband on for positive identification. Bed in low position. Call kc6 light in reach. Side rails up X2. Adult w/ patient. Client placed on continuous cardiac and pulse oximetry monitoring. NIBP monitoring applied. pvc monitor on. Pillow given. 14:44 MRI - Brain W/Wo Cont In Process Unspecified. EDMS 18:17 No provider procedures requiring assistance completed. IV discontinued, intact, kc6 bleeding controlled, No redness/swelling at site. Pressure dressing applied. Administered Medications: 13:10 Drug: NS 0.9% IV 1000 ml IV at 1 bolus Per protocol; 1000 mL bolus Route: IV; Rate: 1 kc6 bolus; Site: left antecubital; 16:18 Follow up: Response: No adverse reaction; IV Status: Completed infusion; IV Intake: kc6 1000ml 13:10 Drug: Ketorolac IVP 15 mg IVP once Route: IVP; Site: left antecubital; kc6 13:47 Follow up: Response: No adverse reaction; Pain is decreased kc6 13:10 Drug: Droperidol IVP 2.5 mg IVP once Route: IVP; Site: left antecubital; kc6 13:47 Follow up: Response: No adverse reaction kc6 13:10 Drug: Decadron - Dexamethasone IVP 10 mg IVP once Route: IVP; Site: left antecubital; kc6 13:47 Follow up: Response: No adverse reaction kc6 18:00 Drug: MethylPrednisoLONE IVP 1000 mg IVP once Route: IVP; Site: left antecubital; kc6 18:17 Follow up: Response: No adverse reaction kc6 Medication: 18:17 VIS not applicable for this client. kc6 Intake: 16:18 IV: 1000ml; Total: 1000ml. kc6 Outcome: 17:44 Discharge ordered by . ec2 18:17 Discharged to home ambulatory, with significant other, kc6 18:17 Condition: good 18:17 Discharge instructions given to patient, significant other, Instructed on discharge instructions, follow up and referral plans. medication usage, Demonstrated understanding of instructions, follow-up care, medications, Prescriptions given X 2, 18:17 Patient left the ED. kc6 Signatures: Dispatcher [employer] EDAziza Horton, Reg Reg mr JoannadeweyMedhat, RN RN as6 Shagufta Flores RN RN kc6 Vinod Bray MD MD ec2
[2023-06-17] MEDS ORDERED: METHYLPREDNISOLONE 125 MG INJ ONE (17:47)
[2023-06-17 18:30] VITALS: TEMP 97.2
[2023-06-17 18:55] VITALS: BP 155/109; O2SAT 99
== END 2023-06-17 18:17 | disposition home or self-care (01) ==
LOC: ER 12:27
DX: E87.6 Hypokalemia (principal); N39.0 Urinary tract infection, site not specified; G35 Multiple sclerosis
CPT/HCPCS: 85025; 81001; 36415; 81025; 80053; 70553; A9577; J1100; J2919; J7030